=== PATIENT | female | born 1960 | race Caucasian/White ===

== ENCOUNTER 2017-04-27 12:17 | Emergency (ER) | payer BC ==
[2017-04-27 13:01] VITALS: BP 101/60
--- NOTE | 2017-04-27 13:13 | UC ---
Hand/Wrist HPI - HPI Summary HPI Summary: Stung on R hand 2 days ago by flying insect. Since then has been having increasing redness, soreness, and itching on R hand and wrist, not into arm. Denies hives, vomiting, trouble breathing. - History Of Current Complaint Hx Obtained From: Patient ?: No Onset/Duration: Sudden Onset Severity Initially: Mild Severity Currently: Mild Character Of Pain: Dull, Aching Associated Signs And Symptoms: Positive: Swelling, Redness Related History: Dominant Hand Right <Lorena Da Silva - Last Filed: 04/27/17 13:08> <Sylvie Wilkes - Last Filed: 04/27/17 13:38> - History Of Current Complaint Stated Complaint: HAND SWOLLEN BEE STING Time Seen by Provider: 04/27/17 13:00 - Allergies/Home Medications Allergies/Adverse Reactions: Allergies Allergy/AdvReac Type Severity Reaction Status Date / Time Erythromycin Allergy Abdominal Verified 04/27/17 13:02 Pain PMH/Surg Hx/FS Hx/Imm Hx Previously Healthy: Yes - Surgical History Surgical History: None Surgery Procedure, Year, and Place: NONE TO HEAD - Family History Known Family History: Positive: Hypertension - Social History Alcohol Use: None Substance Use Type: None Smoking Status (MU): Never Smoked Tobacco <Lorena Da Silva - Last Filed: 04/27/17 13:08> Review of Systems Constitutional: Negative Skin: Rash - redness R hand Eyes: Negative ENT: Negative Respiratory: Negative Cardiovascular: Negative Gastrointestinal: Negative Genitourinary: Negative Motor: Negative Neurovascular: Negative Musculoskeletal: Negative Neurological: Negative Psychological: Negative All Other Systems Reviewed And Are Negative: Yes <Lorena Da Silva - Last Filed: 04/27/17 13:08> Physical Exam Triage Information Reviewed: Yes Appearance: Well-Appearing Vital Signs: Initial Vital Signs Pulse 43 04/27/17 12:55 Resp 16 04/27/17 12:55 BP 101/60 04/27/17 12:55 Pulse Ox 100 04/27/17 12:55 Vital Signs Reviewed: Yes Eye Exam: Normal Eyes: Positive: Conjunctiva Clear ENT Exam: Normal ENT: Positive: Normal ENT inspection, Hearing grossly normal, Pharynx normal, TMs normal Dental Exam: Normal Neck exam: Normal Neck: Positive: Supple, Nontender, No Lymphadenopathy Respiratory Exam: Normal Respiratory: Positive: Chest non-tender, Lungs clear, Normal breath sounds, No respiratory distress, No accessory muscle use Cardiovascular Exam: Normal Cardiovascular: Positive: RRR, No Murmur Musculoskeletal Exam: Normal Neurological Exam: Normal Psychological Exam: Normal Skin Exam: Other - R hand redness, warm <Lorena Da Silva - Last Filed: 04/27/17 13:08> Vital Signs: Initial Vital Signs Pulse 43 04/27/17 12:55 Resp 16 04/27/17 12:55 BP 101/60 04/27/17 12:55 Pulse Ox 100 04/27/17 12:55 <Sylvie Wilkes - Last Filed: 04/27/17 13:38> Hand/Wrist Course/Dx - Differential Dx/Diagnosis Provider Diagnoses: R hand insect sting, local reaction <Lorena Da Silva - Last Filed: 04/27/17 13:08> Discharge <Lorena Da Silva - Last Filed: 04/27/17 13:08> <Sylvie Wilkes - Last Filed: 04/27/17 13:38> - Discharge Plan Condition: Stable Disposition: HOME Prescriptions: predniSONE TAB* [Deltasone TAB*] 40 mg PO DAILY #4 tab Patient Education Materials: Insect Bite or Sting (ED) Referrals: Margi Mckee MD [Primary Care Provider] - Additional Instructions: If you have severe redness, swelling, pain, or drainage, please return here. Attestation Statement User Type: Provider - I was available for consult. This patient was seen by the DAVIN. The patient was not presented to, seen by, or examined by me. -Sara <Sylvie Wilkes - Last Filed: 04/27/17 13:38>
== END 2017-04-27 13:11 | disposition home or self-care (01) ==
LOC: UCEAST 12:17
DX: T63.481A Toxic effect of venom of other arthropod, accidental (unintentional), initial encounter (principal); L53.9 Erythematous condition, unspecified
CPT/HCPCS: 99212; G0463

== ENCOUNTER 2019-03-03 09:41 | Emergency (ER) | payer BC, OTHER ==
[2019-03-03] MEDS ORDERED: Acetaminophen TAB* 325 MG PO ONE (10:05)
--- OUTSIDE RECORDS SUMMARY | 2019-03-03 10:23 | XMS REPORT | Continuity of Care Document ---
:1960 External Reference #:[id number] Author Name Antonioyo Lyudmila Care Team Providers Name Role Phone Margi Mckee MD Primary Care Physician Unavailable Payers Date Identification Numbers Payment Provider Subscriber Effective: 2017 Policy Number: [id number] [employer] Darshana Ha PayID: [id number] [address] [address] [place] [address] Advance Directives Description No Information Available Problems Active Problems Provider Date Allergic asthma without status asthmaticus aMrgi Mckee M.D. Onset: 09/2011 Hyperlipidemia Margi Mckee M.D. Onset: 08/05/2011 Palpitations Jacklyn Moy M.D. Onset: 08/05/2011 Family History Date Family Member(s) Observation Comments General Heart Disease General Diabetes General Leukemia General Stroke : (age Father due to Leukemia also colon cancer 73 Years) Father Colon Cancer : (age Mother due to Stroke DM, HTN ID at age 62, 83 Years) at 83. 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 ETOH Use Has consumed alcohol in alcohol dependence, the past quit 1989 Tobacco Use Start: Unknown End: Patient is a former 1 ppd quit in her Unknown smoker 40's. Smoking Status Reviewed: 02/21/19 Patient is a former 1 ppd quit in her smoker 40's. Exercise Exercises regularly Daily. 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 [employer] [employer] Allergies, Adverse Reactions, Alerts Active Allergies Reaction Severity Comments Date Tetracycline Nausea and Vomiting Moderate 08/08/2010 Erythromycin Nausea and Vomiting Moderate 08/11/2010 Medications Active Medications SIG Qnty Indications Ordering Date Provider Gushaunafenesin-Codeine 5-10 milliliters 240ml [facility] 08/30/2018 every 6 hours as Ambar Mckee 100-10mg/5ML needed for cough Solution Mupirocin Calcium apply twice a day 15gm L01.00 [facility] 12/09/2017 Ambar Mckee 2% Cream Ibuprofen take one tablet by 60tabs [facility] 03/30/2017 600mg mouth three times a Ambar Mckee Tablets day as needed Proair HFA 2 puffs 4 times 8.500gm [facility] 01/07/2017 daily as needed Ambar Mckee 108(90Base) mcg/Act Aerosol History Medications Amoxicillin/Clavulanate take one tablet 20tabs J01.90 Yoel Greenfield 2018 - Potassium q12 hours for 10 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 02/13/2019 875-125mg Tablets days Fluconazole one by mouth february 2tabs J01.80 Yoel Greenfield 09/06/2018 - 150mg Tablets repeat in 3 days 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 02/10/2019 as needed Augmentin one by mouth 20tabs R05 [facility] 08/30/2018 - 875-125mg Tablets every 12 hours Ambar Mckee 09/06/2018 for 10 days Azithromycin 2 PO qd x 3 days 6tabs Margi 08/30/2018 - 250mg Tablets Ambar Mckee 09/06/2018 Ciprofloxacin HCL 1 by mouth twice 6tabs N39.0 Margi 04/16/2017 - 250mg Tablets a day for 3 days Ambar Mckee 12/08/2017 Amoxicillin/Clavulanate 1 tablet twice 20tabs [facility] 01/30/2017 - Potassium daily for 10 days Ambar Mckee 02/10/2017 875-125mg Tablets Benzonatate take 1 capsule by 20caps [facility] 01/29/2017 - 200mg Capsules mouth three times Ambar Mckee 02/03/2017 a day if needed for cough Cleocin 1 applicator 40gm N77.1 [facility] 05/14/2016 - 2% Cream intravaginally at Ambar Mckee 01/10/2017 bedtime for 7 nights Fluconazole one by mouth february 2tabs Lillian 04/20/2016 - 150mg Tablets repeat in 3 days Belinda, N.P. 05/14/2016 as needed Augmentin 1 tablet by mouth 20tabs J06.9 Yoel Greenfield, 01/16/2016 - 875-125mg Tablets q12 hours for 10 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 01/23/2016 days Diflucan take 1 tablet. if 2tabs J06.9 Yoel Greenfield, 01/16/2016 - 150mg Tablets symptoms persist 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 01/24/2016 may take second tablet in 3 days. 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 may repeat Ambar Mckee 07/17/2012 3 days later if needed Augmentin one by mouth 20tabs 461.9 [facility] 04/20/2011 - 875-125mg Tablets every 12 hours Ambar Mckee 04/30/2011 for ten days Fluticasone Propionate 1 spray each 1Month 461.9 [facility] 04/20/2011 - 50mcg/Act nostril daily as Ambar Mckee 05/04/2011 Suspension needed Proair HFA 2 puffs 4 times 8.500gm 493.00 Margi 12/12/2010 - 108(90Base) mcg/ac daily as needed Ambar Mckee 08/05/2011 Aerosol Augmentin 1 tab by mouth 20tabs Sandra Marsha, 10/02/2010 - 875-125mg Tablets twice a day [facility], [facility] 10/30/2010 Nasonex 1 spray each 17gm Sandra Larson, 09/30/2010 - 50mcg/Act Suspension nostril daily M.[facility]uc[facility], [facility] 09/30/2010 Ibuprofen 1 by mouth three 60tabs Margi - 600mg Tablets times a day as Ambar Mckee 03/30/2017 needed Medications Administered in Office Medication SIG Qnty Indications Ordering Provider Date PPD Margi Mckee M.D. 04/23/2016 Injection Immunizations CPT Code Status Date Vaccine Reaction Lot # [id number] Given 07/20/2018 Influenza Virus Vaccine, No immediate [id number] Quadrivalent, Split, reaction...[id number] Preservative Free 04532 Given 08/03/2017 Influenza Virus Vaccine, [id number] Quadrivalent, Split, Preservative Free 02704 Given 08/07/2016 Influ Virus Vaccine, [id number] Quadrivalent, Split Virus, [place] [address] Given 08/02/2015 Influenza Virus Vaccine, [id number] Quadrivalent, Split, Preservative Free 10742 Given 08/01/2014 Influenza Virus Vaccine, [id number] Quadrivalent, Split, Preservative Free 60106 Given 08/11/2013 Flu Vaccine Split Virus [id number] Preservative Free For Indiv 3Yr Older Q2038 Given 07/18/2012 Fluzone Vaccine [id number] 03986 Given 08/05/2011 Influenza Virus 3Yrs & Over [id number] 22178 Given 10/31/2010 Tdap - Tetanus/Diptheria/Acellular Pertussis 51792 Given 08/11/2010 Influenza Virus 3Yrs & Over 26046 Given 11/04/2009 Influenza Virus Vaccine, Pandemic Formulation 85384 Given 11/04/2009 Administration Swine Flu Shot 10588 Given 08/05/2009 Influenza Virus 3Yrs & Over 56241 Given 08/06/2008 Influenza Virus 3Yrs & Over 83425 Given 08/12/2007 Influenza Virus 3Yrs & Over 62635 Given 08/12/2007 Influenza Virus 3Yrs & Over 66623 Given 09/03/2006 Influenza Virus 3Yrs & Over 52045 Given 09/03/2006 Influenza Virus 3Yrs & Over Vital Signs Date Vital Result Comment 02/21/2019 2:13pm Height 64.75 inches 5'4.75" Heart Rate 58 /min BP Systolic Sitting 110 mmHg BP Diastolic Sitting 71 mmHg Body Temperature 98.4 F O2 % BldC Oximetry 98 % 02/03/2019 11:40am Height 64.75 inches 5'4.75" Weight 150.00 lb Heart Rate 65 /min BP Systolic Sitting 101 mmHg BP Diastolic Sitting 62 mmHg Body Temperature 98.0 F O2 % BldC Oximetry 98 % BMI (Body Mass Index) 25.2 kg/m2 12/08/2018 8:53am Height 64.75 inches 5'4.75" Weight 142.00 lb Heart Rate 69 /min BP Systolic 97 mmHg BP Diastolic 62 mmHg O2 % BldC Oximetry 100 % BMI (Body Mass Index) 23.8 kg/m2 08/30/2018 3:34pm Height 64.75 inches 5'4.75" Weight 148.00 lb Heart Rate 82 /min BP Systolic Standing 117 mmHg BP Diastolic Standing 73 mmHg Body Temperature 99.8 F O2 % BldC Oximetry 97 % BMI (Body Mass Index) 24.8 kg/m2 05/17/2018 10:07am Height 64.75 inches 5'4.75" Weight 144.00 lb Heart Rate 75 /min BP Systolic 123 mmHg BP Diastolic 74 mmHg O2 % BldC Oximetry 97 % BMI (Body Mass Index) 24.1 kg/m2 04/21/2018 8:10am Height 64.75 inches 5'4.75" Weight 144.00 lb Heart Rate 60 /min BP Systolic 110 mmHg BP Diastolic 70 mmHg O2 % BldC Oximetry 98 % BMI (Body Mass Index) 24.1 kg/m2 04/04/2018 10:40am Height 64.75 inches 5'4.75" Weight 145.00 lb Heart Rate 60 /min BP Systolic Sitting 98 mmHg BP Diastolic Sitting 70 mmHg O2 % BldC Oximetry 100 % BMI (Body Mass Index) 24.3 kg/m2 12/09/2017 11:35am Weight 145.00 lb Heart Rate 69 /min BP Systolic Sitting 106 mmHg BP Diastolic Sitting 74 mmHg Body Temperature 97.2 F O2 % BldC Oximetry 98 % 04/16/2017 3:52pm Weight 145.75 lb Heart Rate 59 /min BP Systolic 114 mmHg BP Diastolic 68 mmHg Body Temperature 96.5 F O2 % BldC Oximetry 95 % 03/30/2017 9:13am Height 64.25 inches 5'4.25" Weight 143.00 lb Heart Rate 73 /min BP Systolic 110 mmHg BP Diastolic 66 mmHg Body Temperature 97.2 F O2 % BldC Oximetry 99 % BMI (Body Mass Index) 24.4 kg/m2 02/03/2017 12:59pm Heart Rate 74 /min BP Systolic Sitting 106 mmHg BP Diastolic Sitting 68 mmHg Body Temperature 97.8 F O2 % BldC Oximetry 97 % 01/29/2017 10:05am Weight 146.25 lb Heart Rate 64 /min BP Systolic Sitting 112 mmHg BP Diastolic Sitting 58 mmHg Body Temperature 98.0 F O2 % BldC Oximetry 98 % 01/11/2017 8:16am Height 64.25 inches 5'4.25" Weight 149.00 lb Heart Rate 60 /min BP Systolic Sitting 108 mmHg BP Diastolic Sitting 62 mmHg Respiratory Rate 16 /min Pain Level 2 BMI (Body Mass Index) 25.4 kg/m2 12/10/2016 9:01am Weight 147.00 lb with shoes Heart Rate 73 /min BP Systolic 106 mmHg BP Diastolic 70 mmHg Body Temperature 96.4 F O2 % BldC Oximetry 99 % 05/14/2016 1:25pm Weight 143.00 lb Heart Rate 60 /min BP Systolic Sitting 124 mmHg BP Diastolic Sitting 80 mmHg Respiratory Rate 15 /min Body Temperature 98.1 F O2 % BldC Oximetry 98 % 04/15/2016 1:22pm Heart Rate 76 /min BP Systolic Sitting 118 mmHg BP Diastolic Sitting 64 mmHg Respiratory Rate 15 /min Body Temperature 98.0 F O2 % BldC Oximetry 98 % 04/10/2016 11:48am Height 64.25 inches 5'4.25" Weight 144.00 lb Heart Rate 78 /min BP Systolic Sitting 114 mmHg BP Diastolic Sitting 62 mmHg Respiratory Rate 15 /min Body Temperature 97.3 F O2 % BldC Oximetry 99 % BMI (Body Mass Index) 24.5 kg/m2 03/26/2016 10:43am Height 64.25 inches 5'4.25" Weight 143.00 lb Heart Rate 63 /min BP Systolic Sitting 102 mmHg BP Diastolic Sitting 70 mmHg Body Temperature 96.4 F O2 % BldC Oximetry 98 % BMI (Body Mass Index) 24.4 kg/m2 01/16/2016 10:52am Height 64.75 inches 5'4.75" Weight 140.00 lb Heart Rate 62 /min BP Systolic Sitting 112 mmHg BP Diastolic Sitting 72 mmHg Respiratory Rate 16 /min Body Temperature 97.0 F O2 % BldC Oximetry 99 % BMI (Body Mass Index) 23.5 kg/m2 01/13/2016 1:22pm Height 64.75 inches 5'4.75" Weight 141.00 lb Heart Rate 84 /min BP Systolic Sitting 118 mmHg BP Diastolic Sitting 68 mmHg Body Temperature 100.1 F O2 % BldC Oximetry 98 % BMI (Body Mass Index) 23.6 kg/m2 03/21/2015 10:33am Height 64.75 inches 5'4.75" Weight 141.00 lb Heart Rate 62 /min BP Systolic Sitting 95 mmHg BP Diastolic Sitting 60 mmHg BMI (Body Mass Index) 23.6 kg/m2 01/09/2015 2:05pm Weight 145.00 lb Heart Rate 65 /min BP Systolic Sitting 110 mmHg BP Diastolic Sitting 66 mmHg Body Temperature 96.8 F 12/06/2014 2:52pm Weight 144.00 lb Heart Rate 66 /min BP Systolic Sitting 110 mmHg BP Diastolic Sitting 65 mmHg Body Temperature 98.2 F O2 % BldC Oximetry 99 % 03/15/2014 10:23am Height 65 inches 5'5" Weight 144.00 lb Heart Rate 55 /min BP Systolic Sitting 106 mmHg BP Diastolic Sitting 68 mmHg Body Temperature 97.6 F BMI (Body Mass Index) 24.0 kg/m2 11/01/2013 9:33am Weight 146.00 lb Heart Rate 76 /min BP Systolic Sitting 110 mmHg BP Diastolic Sitting 76 mmHg 07/18/2012 10:32am Height 64 inches 5'4" Weight 145.00 lb Heart Rate 70 /min BP Systolic Sitting 122 mmHg BP Diastolic Sitting 76 mmHg BMI (Body Mass Index) 24.9 kg/m2 05/10/2012 11:42am Height 64 inches 5'4" Weight 147.00 lb Heart Rate 74 /min BP Systolic Sitting 112 mmHg BP Diastolic Sitting 60 mmHg Body Temperature 98.8 F BMI (Body Mass Index) 25.2 kg/m2 12/14/2011 11:03am Height 64 inches 5'4" Heart Rate 66 /min BP Systolic Sitting 118 mmHg BP Diastolic Sitting 64 mmHg 11/26/2011 11:40am Height 64 inches 5'4" Weight 150.00 lb Heart Rate 60 /min BP Systolic Sitting 104 mmHg BP Diastolic Sitting 58 mmHg Body Temperature 97.9 F BMI (Body Mass Index) 25.7 kg/m2 08/28/2011 1:04pm Height 64 inches 5'4" Weight 156.00 lb Heart Rate 74 /min BP Systolic Sitting 126 mmHg BP Diastolic Sitting 78 mmHg BMI (Body Mass Index) 26.8 kg/m2 08/05/2011 9:33am Height 64 inches 5'4" Heart Rate 60 /min BP Systolic Sitting 98 mmHg l BP Diastolic Sitting 62 mmHg l O2 % BldC Oximetry 97 % 04/20/2011 11:19am Height 64 inches 5'4" Weight 149.00 lb Heart Rate 74 /min BP Systolic Sitting 104 mmHg BP Diastolic Sitting 74 mmHg Body Temperature 97.9 F BMI (Body Mass Index) 25.6 kg/m2 12/12/2010 1:21pm Heart Rate 64 /min BP Systolic 102 mmHg BP Diastolic 58 mmHg Body Temperature 98.8 F O2 % BldC Oximetry 98 % 11/05/2010 2:32pm Heart Rate 60 /min BP Systolic 102 mmHg BP Diastolic 64 mmHg Body Temperature 98.5 F 10/31/2010 9:05am Height 65 inches 5'5" Weight 158.75 lb Heart Rate 78 /min BP Systolic 90 mmHg BP Diastolic 60 mmHg BMI (Body Mass Index) 26.4 kg/m2 09/30/2010 2:44pm Heart Rate 84 /min BP Systolic Sitting 108 mmHg BP Diastolic Sitting 52 mmHg Body Temperature 97.1 F 08/11/2010 3:08pm Weight 158.38 lb Heart Rate 60 /min BP Systolic 100 mmHg BP Diastolic 58 mmHg Results Test Date Facility Test Result H/L Range Note Laboratory test 12/08/2018 [facility] Cytology SEE RESULT 1 , [address] [place] [address] [phone] Laboratory test 11/10/2018 [facility] Surgical Interface SEE RESULT [address] [place] [address] [phone] Laboratory test 05/17/2018 [facility] Surgical Pathology SEE RESULT [address] [place] [place], [place] [id number] [phone] Laboratory test 04/21/2018 [facility] Cytology SEE RESULT 5 , [address] [place], [place] [id number] [phone] Lipid Profile 03/31/2018 [facility] Triglycerides 79 mg/dL 7 (Trig/Chol/HDL) [address] [place] [address] [phone] Cholesterol 236 mg/dL 8 HDL Cholesterol 89.6 mg/dL 9 LDL Cholesterol 131 mg/dL 10 Laboratory test 03/31/2018 [facility] Glucose 73 mg/dL N 70- [address] [place] [address] [phone] Urine Culture And 04/16/2017 [facility] Urine Culture SEE RESULT [address] [place] [place], [place] [id number] [phone] GC/Chlamydia 04/16/2017 [facility] Chlamydia Negative N Negative Amplified Rna [address] [place] [address] Rna [phone] Neisseria gonorrhoeae (GC) Rna Negative N Negative Ua Routine 04/16/2017 [facility] Ua Specific [place] 1.005 Ua PH 6 Ua Color yellow Ua Appera cl Ua WBC trace Ua Protein neg Ua Glucose norm Ua Ketones neg Ua Bilirubin neg Ua Urobilinogen norm Ua Nitrite neg Ua Occult Blood neg Laboratory test 03/30/2017 [facility] Gardnerella/Yeast: SEE RESULT [address] Vaginal Dna BELOW [place], [place] [id number] [phone] Basic Metabolic 03/26/2017 [facility] Sodium 138 mmol/L N 133 - Panel [address] [place] [address] [phone] Potassium 4.1 mmol/L N 3.5-5.0 Chloride 102 mmol/L N 101-111 Co2 Carbon Dioxide 32 mmol/L N 22-32 Anion Gap 4 mmol/L N 2-11 Glucose 77 mg/dL N 70-100 Blood Urea Nitrogen 10 mg/dL N 6-24 Creatinine 0.77 mg/dL N 0.51-0.95 BUN/Creatinine Ratio 13.0 N 8-20 Calcium 9.5 mg/dL N 8.6-10.3 Egfr Non- 77.5 N >60 Egfr 99.7 N >60 13 Lipid Profile 03/26/2017 [facility] Triglycerides 88 mg/dL N 14 (Trig/Chol/HDL) [address] [place] [address] [phone] Cholesterol 225 mg/dL N 15 HDL Cholesterol 78.0 mg/dL N 16 LDL Cholesterol 129 mg/dL N 17 Ua Routine 05/14/2016 [facility] Ua Specific [place] 1.010 Ua PH 6 Ua Color yellow Ua Appera clear Ua WBC neg Ua Protein neg Ua Glucose neg Ua Ketones neg Ua Bilirubin neg Ua Urobilinogen neg Ua Nitrite neg Ua Occult Blood non hemo trace Laboratory test 05/14/2016 [facility] Gardnerella/Yeast: SEE RESULT [address] [place] [address] [phone] Urine Culture And 05/14/2016 [facility] Urine Culture SEE RESULT [address] [place] [address] [phone] Laboratory test 04/15/2016 [facility] Gardnerella/Yeast: SEE RESULT [address] [place] [address] [phone] Urine Culture And 04/15/2016 [facility] Urine Culture SEE RESULT [address] [place] [address] [phone] Ua Routine 04/15/2016 [facility] Ua Specific [place] 1.010 Ua PH 5 Ua Color yellow Ua Appera clear Ua WBC neg Ua Protein neg Ua Glucose neg Ua Ketones neg Ua Bilirubin neg Ua Urobilinogen neg Ua Nitrite neg Ua Occult Blood neg Lipid Profile 03/19/2016 [facility] Triglycerides 79 mg/dL N 22 (Trig/Chol/HDL) [address] [place] [address] [phone] Cholesterol 234 mg/dL N 23 HDL Cholesterol 91.9 mg/dL N 24 LDL Cholesterol 126 mg/dL N 25 Laboratory test 03/19/2016 [facility] Glucose 73 mg/dL N 70- [address] [place] [address] [phone] Laboratory test 01/13/2016 [facility] Rapid Group A neg finding Strep Laboratory test 03/29/2015 [facility] Cytology SEE RESULT [address] Non-[place] [address] [phone] Urinalysis 03/29/2015 [facility] Urine Color Straw N Profile [address] [place] [address] [phone] Urine Appearance Clear N Urine Specific [place] 1.006 Low 1.010-1.030 Urine pH 6.0 N 5-9 Urine Urobilinogen Negative N Negative Urine Ketones Negative N Negative Urine Protein Negative N Negative Urine Leukocytes Negative N Negative Urine Blood Negative N Negative * * Abnormal Negative 28 Urine Nitrite Negative N Negative Urine Bilirubin Negative N Negative Urine Glucose Negative N Negative Urinalysis Profile 03/21/2015 [facility] Urine Color Straw N [address] [place] [address] [phone] Urine Appearance Clear N Urine Specific [place] 1.006 Low 1.010-1.030 Urine pH 8.0 N 5-9 Urine Urobilinogen Negative N Negative Urine Ketones Negative N Negative Urine Protein Negative N Negative Urine Leukocytes Trace Abnormal Negative Urine Blood Negative N Negative Urine Nitrite Negative N Negative Urine Bilirubin Negative N Negative Urine Glucose Negative N Negative Urine White Blood Cell Trace(0-5/hpf) N Absent Urine Red Blood Cell Trace(0-2/hpf) N Absent Urine Bacteria Absent N Absent Urine Squamous Epithelial Cell Present Abnormal Absent Urine Transitional Epithelial Present Abnormal Absent Laboratory test 03/21/2015 [facility] Urine Culture And SEE RESULT [address] [place] [address] [phone] Lipid Profile 03/13/2015 [facility] Triglycerides 94 mg/dL N 30 (Trig/Chol/HDL) [address] [place] [address] [phone] Cholesterol 193 mg/dL N 31 HDL Cholesterol 75.9 mg/dL N 32 LDL Cholesterol 98 mg/dL N 33 Laboratory test 03/13/2015 [facility] Glucose 76 mg/dL N 70- [address] [place] [address] [phone] Lipid Profile 03/07/2014 [facility] Triglycerides 78 mg/dL N 35, 36 (Trig/Chol/HDL) [address] [place] [address] [phone] Cholesterol 195 mg/dL N 37 HDL Cholesterol 77.6 mg/dL N 38 LDL Cholesterol 102 mg/dL N 39 Comp Metabolic Panel 11/01/2013 [facility] Sodium 135 mmol/L 133-145 [address] [place] [address] [phone] Potassium 4.3 mmol/L 3.5-5.0 Chloride 101 mmol/L 101-111 Co2 Carbon Dioxide 30.0 mmol/L 22-32 Anion Gap 4.0 mmol/L 2-11 Glucose 68 mg/dL Low 70-100 Blood Urea Nitrogen 7 mg/dL 6-24 Creatinine 0.70 mg/dL 0.50-1.40 BUN/Creatinine Ratio 10.0 8-20 Calcium 9.0 mg/dL 8.1-9.9 Total Protein 6.4 g/dL 6.2-8.1 Albumin 4.2 g/dL 3.6-5.4 Globulin 2.2 g/dL 2-4 Albumin/Globulin Ratio 1.9 1-3 Total Bilirubin 0.4 mg/dL 0.4-1.5 Alkaline Phosphatase 50 U/L 30-110 Alt 17 U/L 14-54 Ast 21 U/L 12-42 Egfr Non- 87.9 >60 Egfr 113.0 >60 40 CBC With 11/01/2013 [facility] White Blood 8.3 10^3/uL 4.8- 10.[address] [place] [address] [phone] Red Blood Count 4.03 10^6/uL 4.0-5.4 Hemoglobin 12.6 g/dL 12.0-16.0 Hematocrit 37 % 35-47 Mean Corpuscular Volume 93 fL 80-97 Mean Corpuscular Hemoglobin 31 pg 27-31 Mean Corpuscular HGB Conc 34 g/dL 31-36 Red Cell Distribution Width 13 % 10.5-15 Platelet Count 200 10^3/uL 150-450 Platelet Morphology Large Mean Platelet Volume 12 um3 High 7.4-10.4 Abs Neutrophils 5.7 10^3/uL 1.5-7.7 Abs Lymphocytes 1.9 10^3/uL 1.0-4.8 Abs Monocytes 0.6 10^3/uL 0-0.8 Abs Eosinophils 0.1 10^3/uL 0-0.6 Abs Basophils 0 10^3/uL 0-0.2 Abs Nucleated RBC 0 10^3/uL Neutrophil % 67 % 38-83 Lymphocytes % 18 % Low 25-47 Monocytes % 13 % 0-13 Reactive Lymph % 2 % 0-6 RBC Morphology Normal Normal Laboratory 07/18/2012 [facility] Cytology 41 test finding [address] <SEE NOTE> [place], [place] [id number] [phone] Laboratory 11/26/2011 [facility] Throat [address] Culture Full <SEE NOTE> [place], [place] [id number] [phone] Thyroid Panel 08/06/2011 [facility] Free 0.67 ng/dL 0.61 DRIVE Thyroxine -1.2 [place] [address] 4 [phone] Thyroxine 5.1 g/dL 5-12 Laboratory test 08/06/2011 [facility] TSH 1.47 0.34-5.[address] MIU/ML [place], [place] [address] [phone] Laboratory test 10/31/2010 [facility] C Reactive < 0.2 mg/L < 7.[address] [place] [address] Sensit [phone] Lipid Profile 10/31/2010 [facility] Triglyceride 68 mg/dL 40- 200 (Trig/Chol/HDL) [address] [place], [place] [address] [phone] Cholesterol 192 mg/dL Less Than 200 44 High Density Lipoprotein 77 mg/dL High 40-60 45 Cholesterol/HDL Ratio 2.49 AVERAGE 1-4.44 Low Density Lipoprotein 101 mg/dL High Less Than 100 46 Comp Metabolic Panel 10/31/2010 [facility] Sodium 136 mmol/L 135-145 [address] [place] [address] [phone] Potassium 4.4 mmol/L 3.5-5.0 Chloride 102 mmol/L 101-111 Co2 (Carbon Dioxide) 29.0 mmol/L 22-32 Anion Gap 5.0 mmol/L 2-11 47 Glucose 78 mg/dL 70-100 BUN 6 mg/dL 6-24 Creatinine 0.80 mg/dL 0.50-1.40 One Over Creatinine 1.20 BUN/Creatinine Ratio 7.5 Low 8-20 Calcium 9.1 mg/dL 8.1-9.9 Total Protein 6.4 GM/DL 6.2-8.1 Albumin 4.0 GM/DL 3.6-5.4 Globulin 2.4 GM/DL 2-4 Albumin/Globulin Ratio 1.7 1-3 Bilirubin Total 0.7 mg/dL 0.4-1.5 48 Alkaline Phosphatase 48 U/L 30-110 Alt (SGPT) 16 U/L 14-54 Ast (Sgot) 23 U/L 12-42 eGFR Non- 81.0 > 60 eGFR 98.0 > 60 49 Laboratory test 06/10/2010 [facility] TSH 1.57 MIU/ML 0.34- 5.60 finding [address] [place] [address] [phone] Lipid Profile 06/10/2010 [facility] Triglyceride 76 mg/dL 40- 200 (Trig/Chol/HDL) [address] [place] [address] [phone] Cholesterol 215 mg/dL High Less Than 200 50 High Density Lipoprotein 61 mg/dL High 40-60 51 Cholesterol/HDL Ratio 3.52 AVERAGE 1-4.44 Low Density Lipoprotein 139 mg/dL High Less Than 100 52 Comp Metabolic Panel 06/10/2010 [facility] Sodium 139 mmol/L 135-145 [address] [place] [address] [phone] Potassium 4.1 mmol/L 3.5-5.0 Chloride 105 mmol/L 101-111 Co2 (Carbon Dioxide) 30.0 mmol/L 22-32 Anion Gap 4.0 mmol/L 2-11 53 Glucose 78 mg/dL 70-100 54 BUN 10 mg/dL 6-24 Creatinine 0.90 mg/dL 0.50-1.40 One Over Creatinine 1.10 BUN/Creatinine Ratio 11.1 8-20 Calcium 9.0 mg/dL 8.1-9.9 55 Total Protein 5.8 GM/DL Low 6.2-8.1 Albumin 4.0 GM/DL 3.6-5.4 Globulin 1.8 GM/DL Low 2-4 Albumin/Globulin Ratio 2.2 1-3 Bilirubin Total 0.7 mg/dL 0.4-1.5 56 Alkaline Phosphatase 50 U/L 30-110 Alt (SGPT) 25 U/L 14-54 Ast (Sgot) 27 U/L 12-42 eGFR Non- 70.7 > 60 eGFR 85.6 > 60 57 Manual Differential 06/10/2010 [facility] Polysegmented 61 % 38-[address] [place] [address] [phone] Band Neutrophil 2 % 0-8 Lymphocyte 25 % 25-47 Monocyte 8 % 0-13 Eosinophil 2 % 0-6 Basophil 1 % 0-2 Atypical Lymph 1 % 0-6 Absolute Neutrophil Count 3.2 Anisocytosis SLIGHT Ovalocytes FEW CBC With 06/10/2010 [facility] White Blood 5.1 CUMM 4.8-10.8 Electronic Diff [address] [place] [address] [phone] Red Cell Count 4.00 CUMM Low 4.2-5.4 Hemoglobin 12.7 g/dL 12.0-16.0 Hematocrit 37 % 35-47 Mean Corpuscular Volume 92 um3 79-97 Mean Corpuscular Hemoglob 32 pg High 27-31 Mean Corpuscular HGB Cone 34 g/dL 32-36 Redcell Distribution WDTH 13 % 10.5-15 Platelet Count 196 CUMM 150-450 Mean Platelet Volume 8.7 um3 7.4-10.4 58 1 [id number] 2 SEE RESULT BELOW Name: DARSHANA HA : [address]: Riley Parry MD Acct: [id number] Unit: [id number] AGE: 58 Location: [facility] Re12/08/18 SEX: F Status: REG REF SPEC: [id number] MARY: 12/08/[address]: Riley Parry MD REQ: [id number] RECD: 12/08/18 STATUS: SOUT _ ORDERED: TP IMAGE ANALYS, FOOD DEHYDRATOR OPERATOR PHYS INTERP, HPV/Thin Prep COMMENTS: [id number] EPITHELIAL CELL ABNORMALITIES Atypical squamous cells of undetermined significance Date Time Test Result Flag (u) Normal Range 12/08/18 0858 @ HPV RNA POSITIVE An Negative @ @ The high-risk HPV types detected by the assay include: 16, @ 18, 31, 33, 35, 39, 45, 51, 52, 56, 58, 59, 66, and 68. A. Ectocervical/Endocervical Specimen Adequacy: Satisfactory of evaluation Transformation zone component identified Patient Information: HPV: High risk HPV RNA testing regardless of pap results. Actual Specimen Date: 12/08/18 Last Menstrual Date: 10/25/13 ?: N Post Menopausal?: Y Hysterectomy?: N Signed by and Reported on: Rachele Bey MD 12/13/18 5685 This Pap test was evaluated with the assistance of the TimePadPrep Test Imaging System. Due to cytologic findings at the learning operations specialist microscope, comprehensive manual rescreening by a Figurine Maker may be required. The Pap Smear is a screening test designed to aid in the detection of premalignant and malignant conditions of the uterine cervix. It is not a diagnostic procedure and should not be used as the sole means of detecting cervical cancer. Both false- positive and false- negative reports do occur. Depending on your risk status, a Pap smear should be obtained and evaluated every 1-3 years. END OF REPORT DEPARTMENT OF PATHOLOGY, [address] [place] [address] Lawson Fischer M.D. Director [facility] # [id number] 3 SEE RESULT BELOW Name: DARSHANA HA : [address]: Jayna Orta MD Acct: [id number] Unit: [id number] AGE: 57 Location: [facility] Re11/10/18 SEX: F Status: DEP REF SPEC: [id number] MARY: 11/10/18-[address] [facility] [address]: Jayna Restrepo MD REQ: [id number] RECD: 11/10/18161 STATUS: JEROMY BABCOCK DR: Margi Mckee MD _ ORDERED: LEVEL 4 FINAL DIAGNOSIS Colon, sigmoid, biopsy: -- Tubular adenoma. -- No high grade dysplasia or malignancy. CLINICAL HISTORY History of polyps POST-OPERATIVE DIAGNOSIS Colonoscopy: to terminal ileum; good prep; transverse 4 mm jumbo (2); sigmoid polyp 4 mm jumbo (2); hemorrhoids; very tortuous; looping GROSS DESCRIPTION The specimen is received in formalin labeled, Biopsy Sigmoid Colon Polyp, and consists of two fisher-pink irregular to polypoid soft tissue fragments measuring 0.4 x 0.3 x 0.2 cm and 0.5 x 0.3 x 0.1 cm which are submitted entirely in one cassette. Signed by and Reported on: Rachele Bey MD 11/11/18 1205 END OF REPORT DEPARTMENT OF PATHOLOGY, [address] [place] [address] Lawson Fischer M.D. Director [facility] # [id number] 4 SEE RESULT BELOW Name: DARSHANA HA : [address]: Riley Parry MD Acct: [id number] Unit: [id number] AGE: 57 Location: [facility] Re05/17/18 SEX: F Status: REG REF SPEC: [id number] MARY: 05/17/18-1149 [facility] [address]: Riley Parry MD REQ: [id number] RECD: 05/17/180040 STATUS: SOUT _ ORDERED: LEVEL 4/2, IMMUNO-FIRST/2 COMMENTS: [id number] FINAL DIAGNOSIS 1. Uterus, endocervix, curettage: -- Focal low-grade squamous intraepithelial lesion (condyloma). See comment. 2. Uterus, cervix, 6:00, biopsy: --Partially denuded benign cervical mucosa with atrophic features. See comment. -- No dysplasia or HPV effect identified. Comment: Immunochemical stains for p16 (HPV surrogate marker) are performed with appropriate controls on both parts 1 and 2. Part 1 demonstrates weak focal primarily Beseler staining supporting the diagnosis of condyloma. Part 2 demonstrates no significant p16 staining which in conjunction with the morphology is indicative of benign atrophy. Appropriate clinical follow-up is warranted. CLINICAL HISTORY History of cervical dysplasia greater than 10 years ago, positive high risk HPV PRE-OPERATIVE DIAGNOSIS Atypical squamous cells of undetermined significance, cannot rule out high grade GROSS DESCRIPTION 1. The specimen is received in formalin labeled, ECC, and consists of a 0.3 x 0.2 x 0.1 cm aggregate of fisher-white mucus which is filtered and submitted entirely in one cassette. NOTE: The specimen is scant and may not survive processing. CONTINUED ON NEXT PAGE DEPARTMENT OF PATHOLOGY, [address] [place] [address] Lawson Fischer M.D. Director [facility] # [id number] RUN DATE: 05/20/18 [facility] LAB LIVE PAGE 2 Patient: DARSHANA HA [id number] (Continued) GROSS DESCRIPTION (Continued) GROSS DESCRIPTION (Continued) 2. The specimen is received in formalin labeled, 6:00, and consists of a 0.3 x 0.3 x 0.2 cm fisher-white irregular soft tissue fragment which is inked and submitted entirely in one cassette. Signed by and Reported on: Lawson Fischer MD 1256 END OF REPORT DEPARTMENT OF PATHOLOGY, [address] [place] [address] Lawson Fischer M.D. Director [facility] # [id number] 6 SEE RESULT BELOW Name: DARSHANA FERRO : [address]: Riley Parry MD Acct: [id number] Unit: [id number] AGE: 57 Location: [facility] Re04/21/18 SEX: F Status: REG REF SPEC: [id number] MARY: 04/21/[address]: Riley Parry MD REQ: [id number] RECD: 04/21/18 STATUS: SOUT _ ORDERED: TP IMAGE ANALYS, FOOD DEHYDRATOR OPERATOR PHYS INTERP, HPV/Thin Prep COMMENTS: [id number] EPITHELIAL CELL ABNORMALITIES Atypical squamous cells, cannot exclude HSIL (ASC-H) A. Ectocervical/Endocervical Specimen Adequacy: Satisfactory of evaluation Transformation zone component identified Patient Information: HPV: High risk HPV RNA testing regardless of pap results. Actual Specimen Date: 04/21/18 LMP If Unknown: age 57 Spec Date if unknown: 2015 ?: N Post Menopausal?: Y Hysterectomy?: N Previous Abnormal Pap Smears?:Y If Yes, enter Diagnosis: 2002 dysplasia Date Time Test Result Flag (u) Normal Range 04/21/18 0858 @ HPV RNA POSITIVE An Negative @ @ The high-risk HPV types detected by the assay include: 16, @ 18, 31, 33, 35, 39, 45, 51, 52, 56, 58, 59, 66, and 68. Signed by and Reported on: Rachele Bey MD 04/26/18 4682 This Pap test was evaluated with the assistance of the ThinPrep Test Imaging System. Due to cytologic findings at the learning operations specialist microscope, comprehensive manual rescreening by a Figurine Maker may be required. The Pap Smear is a screening test designed to aid in the detection of premalignant and malignant conditions of the uterine cervix. It is not a diagnostic procedure and should not be used as the sole means of detecting cervical cancer. Both false- positive and false- negative reports do occur. Depending on your risk status, a Pap smear should be obtained and evaluated every 1-3 years. END OF REPORT DEPARTMENT OF PATHOLOGY, [address] [place] [address] Lawson Fischer M.D. Director [facility] # [id number] 7 Desirable: <150 Borderline High: 150-199 High: 200-499 Very High: >500 8 Desirable: <200 Borderline High: 200-239 High: >239 9 Low: <40 Desirable: 40-60 High: >60 10 Desirable: <100 Near Optimal: 100-129 Borderline High: 130-159 High: 160-189 Very High: >189 11 SEE RESULT BELOW Name: DARSHANA FERRO : [address]: Margi Mckee MD Acct: [id number] Unit: [id number] AGE: 56 Location: [facility] Re04/16/17 SEX: F Status: REG REF SPEC: [id number] MARY: 04/16/17-[address] [facility] [address]: Margi Mckee MD REQ: [id number] RECD: 04/16/17 STATUS: COMP _ SOURCE: URINE SPDESC: ORDERED: Urine Culture COMMENTS: [id number] Urine Source: Random Procedure Result Reported Site Urine Culture Final 04/17/17- 1610 ML No Growth (<1,000 CFU/mL) * ML - MAIN LAB ([facility]) . END OF REPORT * ML=Testing performed at Main Lab DEPARTMENT OF PATHOLOGY, [address] [place] [address] Lawson Fischer M.D. Director [facility] # [id number] 12 SEE RESULT BELOW Name: DARIN BRYANTDARSHANA : [address]: Margi Mckee MD Acct: [id number] Unit: [id number] AGE: 56 Location: [facility] Re03/30/17 SEX: F Status: REG REF SPEC: [id number] MARY: 03/30/17-[address] [facility] [address]: Margi Mckee MD REQ: [id number] RECD: 03/30/17 STATUS: COMP _ SOURCE: VAGINAL SPDESC: ORDERED: Cielo,Yeast DNA, Trich DNA COMMENTS: [id number] Procedure Result Reported Site Gardnerella/Yeast: Vaginal DNA Final 03/31/17- 1000 ML Organism 1 Negative Grecia Organism 2 Negative Gardnerella The presence of G. vaginalis, although suggestive, is not diagnostic for bacterial vaginosis. Results should be interpreted in conjuction with other clinical and laboratory data available. Women with vaginal discharge should be evaluated for risk factors of cervicitis and pelvic inflammatory disease, toxic shock syndrome (S.aureus), and if present, evaluated for organisms not included in this assay such as N. gonorrhoeae, C. trachomatis, Mobiluncus, Mycoplasma and/or Prevotella. Mixed infections may occur. The performance of this test on patient specimens collected during or immediately after antimicrobial therapy is unknown. The presence or absence of Grecia species, or G. vaginalis cannot be used as a test for therapeutic success or failure. Trichomonas: Vaginal DNA Probe Final 03/31/17- 1000 ML Organism 1 Negative Trichomonas CONTINUED ON NEXT PAGE * ML=Testing performed at Main Lab DEPARTMENT OF PATHOLOGY, [address] [place] [address] Lawson Fischer M.D. Director [facility] # [id number] Patient: DARSHANA FERRO [id number] (Continued) Specimen: [id number] Collected: 03/30/17-1008 Received: 03/30/17-1834 (Continued) Procedure Result Reported Site Trichomonas: Vaginal DNA Probe Final (continued) 03/31/17- 999 The presence or absence of T. vaginalis cannot be used as a test for therapeutic success or failure. * ML - MAIN LAB ([facility]) . END OF REPORT * ML=Testing performed at Main Lab DEPARTMENT OF PATHOLOGY, [address] [place] [address] Lawson Fischer M.D. Director [facility] # [id number] 13 Because ethnic data is not always readily available, this report includes an eGFR for both -Americans and non- Americans. The National Kidney Disease Education Program (NKDEP) does not endorse the use of the MDRD equation for patients that are not between the ages of 18 and 70, are , have extremes of body size, muscle mass, or nutritional status, or are non- or non-. According to the National Kidney Foundation, irrespective of diagnosis, the stage of the disease is based on the level of kidney function: Stage Description GFR(mL/min/1.73 m(2)) 1 Kidney damage with normal or decreased GFR 90 2 Kidney damage with mild decrease in GFR 60-89 3 Moderate decrease in GFR 30-59 4 Severe decrease in GFR 15-29 5 Kidney failure <15 (or dialysis) 14 Desirable <150 Borderline high 150-199 High 200-499 Very High >500 15 Desirable <200 Borderline high 200-239 High >239 16 Low <40 Desirable: 40-60 High: >60 17 Desirable: <100 mg/dL Near Optimal: 100-129 mg/dL Borderline High: 130-159 mg/dL High: 160-189 mg/dL Very High: >189 mg/dL 18 SEE RESULT BELOW Name: DARSHANA FERRO : [address]: Margi Mckee MD Acct: [id number] Unit: [id number] AGE: 55 Location: [facility] Re05/14/16 SEX: F Status: REG REF SPEC: [id number] MARY: 05/14/16-[address] [facility] [address]: Margi Mckee MD REQ: [id number] RECD: 05/14/16 STATUS: COMP _ SOURCE: VAGINAL SPDESC: ORDERED: Cielo,Yeast DNA, Trich DNA COMMENTS: [id number] Procedure Result Reported Site Gardnerella/Yeast: Vaginal DNA Final 05/15/16- 1048 ML Organism 1 Negative Gardnerella Organism 2 Negative Grecia The presence of G. vaginalis, although suggestive, is not diagnostic for bacterial vaginosis. Results should be interpreted in conjuction with other clinical and laboratory data available. Women with vaginal discharge should be evaluated for risk factors of cervicitis and pelvic inflammatory disease, toxic shock syndrome (S.aureus), and if present, evaluated for organisms not included in this assay such as N. gonorrhoeae, C. trachomatis, Mobiluncus, Mycoplasma and/or Prevotella. Mixed infections may occur. The performance of this test on patient specimens collected during or immediately after antimicrobial therapy is unknown. The presence or absence of Grecia species, or G. vaginalis cannot be used as a test for therapeutic success or failure. Trichomonas: Vaginal DNA Probe Final 05/15/16- 1048 ML Organism 1 Negative Trichomonas CONTINUED ON NEXT PAGE * ML=Testing performed at Main Lab DEPARTMENT OF PATHOLOGY, [address] [place] [address] Lawson Fischer M.D. Director [facility] # [id number] Patient: DARSHANA FERRO [id number] (Continued) Specimen: [id number] Collected: 05/14/16 Received: 05/14/16 (Continued) Procedure Result Reported Site Trichomonas: Vaginal DNA Probe Final (continued) 05/15/16- 1047 The presence or absence of T. vaginalis cannot be used as a test for therapeutic success or failure. * ML - MAIN LAB ([facility]) . END OF REPORT * ML=Testing performed at Main Lab DEPARTMENT OF PATHOLOGY, [address] [place] [id number] Lawson Fischer M.D. Director [facility] # [id number] 19 SEE RESULT BELOW Name: DARIN BRYANTDARSHANA : [address]: Margi Mckee MD Acct: [id number] Unit: [id number] AGE: 55 Location: [facility] Re05/14/16 SEX: F Status: REG REF SPEC: [id number] MARY: 05/14/16-[address]: Margi Mckee MD REQ: [id number] RECD: 05/14/16 STATUS: COMP _ SOURCE: URINE SPDESC: ORDERED: Urine Culture Procedure Result Reported Site Urine Culture Final 05/16/16- 831 ML No growth of clinically significant organisms * ML - MAIN LAB ([facility]) . END OF REPORT * ML=Testing performed at Main Lab DEPARTMENT OF PATHOLOGY, [address] [place] [address] Lawson Fischer M.D. Director [facility] # [id number] 20 SEE RESULT BELOW Name: DARSHANA FERRO : [address]: Lillian Trevino NP Acct: [id number] Unit: [id number] AGE: 55 Location: [facility] Re04/15/16 SEX: F Status: REG REF SPEC: [id number] MARY: 04/15/16-[address] [facility] [address]: Lillian Trevino NP REQ: [id number] RECD: 04/15/16 STATUS: COMP _ SOURCE: VAGINAL SPDESC: ORDERED: Cielo,Yeast DNA, Trich DNA Procedure Result Reported Site Gardnerella/Yeast: Vaginal DNA Final 04/16/16- 1433 ML Organism 1 POSITIVE GARDNERELLA Organism 2 Negative Grecia The presence of G. vaginalis, although suggestive, is not diagnostic for bacterial vaginosis. Results should be interpreted in conjuction with other clinical and laboratory data available. Women with vaginal discharge should be evaluated for risk factors of cervicitis and pelvic inflammatory disease, toxic shock syndrome (S.aureus), and if present, evaluated for organisms not included in this assay such as N. gonorrhoeae, C. trachomatis, Mobiluncus, Mycoplasma and/or Prevotella. Mixed infections may occur. The performance of this test on patient specimens collected during or immediately after antimicrobial therapy is unknown. The presence or absence of Grecia species, or G. vaginalis cannot be used as a test for therapeutic success or failure. Trichomonas: Vaginal DNA Probe Final 04/16/16- 1434 ML Organism 1 Negative Trichomonas CONTINUED ON NEXT PAGE * ML=Testing performed at Main Lab DEPARTMENT OF PATHOLOGY, [address] [place] [address] Lawson Fischer M.D. Director [facility] # [id number] Patient: DARSHANA FERRO [id number] (Continued) Specimen: [id number] Collected: 04/15/16 Received: 04/15/16 (Continued) Procedure Result Reported Site Trichomonas: Vaginal DNA Probe Final (continued) 04/16/16- 7 The presence or absence of T. vaginalis cannot be used as a test for therapeutic success or failure. * ML - MAIN LAB ([facility]) . END OF REPORT * ML=Testing performed at Main Lab DEPARTMENT OF PATHOLOGY, [address] [place] [address] Lawson Fischer M.D. Director [facility] # [id number] 21 SEE RESULT BELOW Name: DARSHANA FERRO : [address]: Lillian Trevino NP Acct: [id number] Unit: [id number] AGE: 55 Location: [facility] Re04/15/16 SEX: F Status: REG REF SPEC: [id number] MARY: 04/15/16-[address]: Lillian Trevino NP REQ: [id number] RECD: 04/15/16 STATUS: COMP _ SOURCE: URINE SPDESC: ORDERED: Urine Culture COMMENTS: [id number] Procedure Result Reported Site Urine Culture Final 04/17/16- 1014 ML No Growth (<1,000 CFU/mL) * ML - MAIN LAB ([facility]) . END OF REPORT * ML=Testing performed at Main Lab DEPARTMENT OF PATHOLOGY, [address] [place] [address] Lawson Fischer M.D. Director [facility] # [id number] 22 Desirable <150 Borderline high 150-199 High 200-499 Very High >500 23 Desirable <200 Borderline high 200-239 High >239 24 Low <40 Desirable: 40-60 High: >60 25 Desirable: <100 mg/dL Near Optimal: 100-129 mg/dL Borderline High: 130-159 mg/dL High: 160-189 mg/dL Very High: >189 mg/dL 26 [facility] [id number] FASTING 12 HOUR 27 SEE RESULT BELOW Name: DARSHANA FERRO : [address]: Margi Mckee MD Acct: [id number] Unit: [id number] AGE: 54 Location: [facility] Re03/29/15 SEX: F Status: REG REF SPEC: [id number] MARY: 03/29/15-[address]: Margi Mckee MD REQ: [id number] RECD: 04/01/15-1239 STATUS: SOUT _ ORDERED: THIN PREP NON G FINAL DIAGNOSIS Urine, voided: Negative for malignant cells. URINE VOID GROSS DESCRIPTION 40 mls of clear yellow voided urine. Signed (signature on file) Rachele Bey MD 07/09 1624 END OF REPORT * ML=Testing performed at Main Lab DEPARTMENT OF PATHOLOGY, [address] [place] [address] Lawson Fischer M.D. Director [facility] # [id number] 28 *Ascorbic acid is present which may interfere with detection of blood. 29 SEE RESULT BELOW Name: DARSHANA FERRO : [address]: Margi Mckee MD Acct: [id number] Unit: [id number] AGE: 54 Location: [facility] Re03/21/15 SEX: F Status: REG REF SPEC: [id number] MARY: 03/21/15-[address] [facility] [address]: Margi Mckee MD REQ: [id number] RECD: 03/21/15 STATUS: COMP _ SOURCE: URINE SPDESC: ORDERED: Urine Culture Procedure Result Verified Site Urine Culture Final 03/23/15- 1059 ML Organism 1 NORMAL AUDRA [place] Count 10-25,000 (Moderate) CFU/ML * ML - MAIN LAB ([facility]) . END OF REPORT * ML=Testing performed at Main Lab DEPARTMENT OF PATHOLOGY, [address] [place] [address] Lawson Fischer M.D. Director [facility] # [id number] 30 Desirable <150 Borderline high 150-199 High 200-499 Very High >500 31 Desirable <200 Borderline high 200-239 High >239 32 Low <40 Desirable: 40-60 High: >60 33 Desirable: <100 mg/dL Near Optimal: 100-129 mg/dL Borderline High: 130-159 mg/dL High: 160-189 mg/dL Very High: >189 mg/dL 34 FASTING 12 HOUR 35 FASTING 36 Desirable <150 Borderline high 150-199 High 200-499 Very High >500 37 Desirable <200 Borderline high 200-239 High >239 38 Low <40 Desirable: 40-60 High: >60 39 Desirable <100 Near Optimal 100-129 Borderline high 130-159 High 160-189 Very High >189 40 Because ethnic data is not always readily available, this report includes an eGFR for both -Americans and non- Americans. The National Kidney Disease Education Program (NKDEP) does not endorse the use of the MDRD equation for patients that are not between the ages of 18 and 70, are , have extremes of body size, muscle mass, or nutritional status, or are non- or non-. According to the National Kidney Foundation, irrespective of diagnosis, the stage of the disease is based on the level of kidney function: Stage Description GFR(mL/min/1.73 m(2)) 1 Kidney damage with normal or decreased GFR 90 2 Kidney damage with mild decrease in GFR 60-89 3 Moderate decrease in GFR 30-59 4 Severe decrease in GFR 15-29 5 Kidney failure <15 (or dialysis) 41 ---- RUN DATE: 07/19/12 [facility] NMI LIVE PAGE 1 RUN TIME: 4163 Specimen Inquiry RUN USER: INTERFACE -- Name: DARIN BRAYNTDARSHANA Status: REG REF Re07/18/12 Age/Sex: 51/F Unit#: [id number] Location: [facility] : 60 -- Specimen: [id number] SOUT Spec Date:07/18/12-[address] [facility] [address]: Margi Mckee MD Spec Type: CYTOLOGY Received:07/19/12-1015 Copies to: SOURCE ECTOCERVICAL/ENDOCERVICAL Thin Prep with Reflex HPV Test PATIENT INFORMATION ACTUAL COLLECTION DATE: 07/18/12 ? No POST MENOPAUSAL? No HYSTERECTOMY? No PREVIOUS ABNORMAL PAP SMEARS No LAST MENSTRUAL PERIOD: 06/07/12 ADEQUACY OF SPECIMEN Satisfactory for evaluation * Transformation zone component identified * DIAGNOSIS NEGATIVE FOR INTRAEPITHELIAL LESION OR MALIGNANCY * This Pap test was evaluated with the assistance of the TimePadPrep Pap Test Imaging System. The Pap Smear is a screening test designed to aid in the detection of premalign ant and malignant conditions of the uterine cervix. It is not a diagnostic procedure a nd should not be used as the sole means of detecting cervical cancer. Both false- positiv e and false-negative reports do occur. Depending on your risk status, a Pap smear chance uld be obtained and evaluated every one to three years. Initial evaluation performed by Sergei URIBE([facility]) 07/19/12 Final Interpretation electronically signed by: Sergei URIBE([facility]) 07/19/12 1452 -- -- DEPARTMENT OF PATHOLOGY, [address] [place] [address] [facility] Permit #[id number] Lawson Fischer M.D. Director Delmy Dumont M.D. [employer] Dir timothy -- 42 RUN DATE: 11/28/11 [facility] NMI LIVE PAGE 1 RUN TIME: 1150 Specimen Inquiry RUN USER: INTERFACE Name: DARSHANA FERRO Status: REG REF Re11/26/11 Age/Sex: 50/F Unit#: [id number] Location: [facility] : 60 SPEC #: [id number] MARY: 11/26/11 STATUS: SHIRIN REQ #: [id number] RECD: 11/26/[address]: Rafi ROTHMAN,Margi Key SOURCE: THROAT ENTR: 11/26/[address]: CARLOS EDUARDOC: ORDERED: THROAT CULTURE QUERIES: MEDENT REQUISITION # [id number] ACT WKST: B 11/28/11 #1 Procedure Result Verified Site > THROAT CULTURE FULL Final 11/28/11- 1150 ML NORMAL THROAT AUDRA FULL THROAT CULTURES ARE CLINICALLY INDICATED TO DETECT THE PRESENCE OF GROUP A STREP, ARCANOBACTERIUM AND YEAST. - [facility] State Permit #[id number] [facility] [place] [id number] DEPARTMENT OF PATHOLOGY, [facility] [employer] [place], [place] [address] [facility] Permit #[id number] Lawson Fischer M.D. Director Delmy Dumont M.D. [employer] Worker 43 Less Than 1.0......Low Risk of Cardiovascular Disease 1.0-3.0............Medium Risk (<2 Fold Increase) Greater Than 3.0...High Risk (Approximately 2-Fold Increase) The above guidelines are referenced in "Markers of Inflammation and Cardiovascular Disease: Application to Clinical and Public Health Practice." A Statement for Health Professionals from the Centers for Disease Control and Prevention and the [place] [employer]. (Reference: Circulation 2003 107:499-511) SERUM LEVELS OF HIGH SENSITIVITY C-REACTIVE PROTEIN MEASURED BY THE Sponge LXi 725 SYSTEM SHOULD NOT BE INTERPRETTED ABSOLUTE EVIDENCE OF THE PRESENCE OR ABSENCE OF DISEASE. A HIGH SENSITIVITY CRP VALUE SHOULD BE USED IN CONJUNCTION WITH OTHER PERTINENT CLINICAL AND DIAGNOSTIC INFORMATION. 44 CHOLESTEROL INTERPRETATION: Desirable: Less than 200 MG/DL Borderline-High Risk: 200-239 MG/DL High-Risk: 240 MG/DL and over 45 HDL INTERPRETATION: Undesirable: High Risk: Less than 40 MG/DL Desirable: Low Risk: Greater than 60 MG/DL 46 LDL INTERPRETATION: Low Risk Optimal Level: LDL Less than 100 MG/DL Near or Above Optimal: LDL 100-129 MG/DL Borderline High Risk: LDL 130-159 MG/DL High Risk: LDL 160-189 MG/DL Very High Risk: LDL Greater than 189 MG/DL 47 Anion gap measurement may be of limited value in the presence of any alkalosis, especially in a combined acid base disorder. . 48 A metabolite of Naproxen, O-desmethylnaproxen, has been shown to interfere with the Jendrcarlosik-Nano method for measuring total bilirubin. Samples from patients who have taken Naproxen have shown spurious elevation in total bilirubin levels. 49 Because ethnic data is not always readily available, this report includes an eGFR for both -Americans and non- Americans. The National Kidney Disease Education Program (NKDEP) does not endorse the use of the MDRD equation for patients that are not between the ages of 18 and 70, are , have extremes of body size, muscle mass, or nutritional status, or are non- or non-. According to the National Kidney Foundation, irrespective of diagnosis, the stage of the disease is based on the level of kidney function: Stage Description GFR(mL/min/1.73 m(2)) 1 Kidney damage with normal or decreased GFR 90 2 Kidney damage with mild decrease in GFR 60-89 3 Moderate decrease in GFR 30-59 4 Severe decrease in GFR 15-29 5 Kidney failure <15 (or dialysis) 50 CHOLESTEROL INTERPRETATION: Desirable: Less than 200 MG/DL Borderline-High Risk: 200-239 MG/DL High-Risk: 240 MG/DL and over 51 HDL INTERPRETATION: Undesirable: High Risk: Less than 40 MG/DL Desirable: Low Risk: Greater than 60 MG/DL 52 LDL INTERPRETATION: Low Risk Optimal Level: LDL Less than 100 MG/DL Near or Above Optimal: LDL 100-129 MG/DL Borderline High Risk: LDL 130-159 MG/DL High Risk: LDL 160-189 MG/DL Very High Risk: LDL Greater than 189 MG/DL 53 Anion gap measurement may be of limited value in the presence of any alkalosis, especially in a combined acid base disorder. . 54 Note change in reference range as of 06/14/08. The change was based on recommendations from the [place] [employer]. 55 Please note change in reference range effective 08 . 56 A metabolite of Naproxen, O-desmethylnaproxen, has been shown to interfere with the Jendrassik-Nano method for measuring total bilirubin. Samples from patients who have taken Naproxen have shown spurious elevation in total bilirubin levels. 57 Because ethnic data is not always readily available, this report includes an eGFR for both -Americans and non- Americans. The National Kidney Disease Education Program (NKDEP) does not endorse the use of the MDRD equation for patients that are not between the ages of 18 and 70, are , have extremes of body size, muscle mass, or nutritional status, or are non- or non-. According to the National Kidney Foundation, irrespective of diagnosis, the stage of the disease is based on the level of kidney function: Stage Description GFR(mL/min/1.73 m(2)) 1 Kidney damage with normal or decreased GFR 90 2 Kidney damage with mild decrease in GFR 60-89 3 Moderate decrease in GFR 30-59 4 Severe decrease in GFR 15-29 5 Kidney failure <15 (or dialysis) 58 Platelet Clumps Procedures Date Code Description Status 11/10/2018 [id number] Colonoscopy Completed 05/17/2018 [id number] Colposcopy W/Biopsy Cervix/Endocervical Curettage Completed 08/26/2017 [id number] Mammogram Completed 08/19/2016 [id number] Mammogram Completed 08/19/2015 [id number] Mammogram Completed 08/15/2014 [id number] Mammogram Completed 09/12/2013 [id number] Mammogram Completed 12/15/2012 [id number] Colonoscopy Completed 08/17/2011 [id number] Holter Monitor Review (24 hr)dr review & interp only Completed 08/05/2011 [id number] EKG Tracing & Interpretation Completed 10/31/2010 [id number] EKG Tracing & Interpretation Completed 12/28/2007 66421 EKG Tracing & Interpretation Completed 11/04/2007 [id number] Colonoscopy Completed 05/21/2006 30481 EKG Tracing & Interpretation Completed Encounters Type Date Location Provider Dx Diagnosis Office Visit 02/03/2019 [facility] Internal Yoel Greenfield NP J01.90 Acute sinusitis , 11:40a Medicine unspecified Office Visit 12/08/2018 [facility] Riley Parry MD R87.612 Low grade intrepith 8:30a [facility] lesion cyto smr crvx (LGSIL) Office Visit 08/30/2018 [facility] Internal Margi Cotton, R05 Cough 3:40p Medicine M.D. 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 general adult medical exam w/o abnormal findings Z12.4 Encounter for screening for malignant neoplasm of cervix Office Visit 12/09/2017 11:20a [facility] Internal Margi L01.00 Impetigo, Torrey Mckee M.D. unspecified Office Visit 04/16/2017 4:00p [facility] Internal Margi R35.8 Other polyuria Torrey Mckee M.D. N39.0 Urinary tract infection, site not specified N77.1 Vaginitis, vulvitis and vulvovaginitis in dis classd [facility] N76.0 Acute vaginitis Office Visit 03/30/2017 9:20a [facility] Internal Margi Z00.00 Encntr nathan Mckee M.D. general adult medical exam w/o abnormal findings N77.1 Vaginitis, vulvitis and vulvovaginitis in dis classd elsr Office Visit 02/03/2017 [facility] Internal Lillian Trevino, J20.9 Acute bronchitis , 1:00p Medicine N.P. unspecified Office Visit 01/29/2017 [facility] Internal Margi R05 Cough 10:00a Torrey Mckee M.D. Office Visit 01/11/2017 Orthopedic Nawaf F M25.561 Pain in right 8:00a Services Of MD Zak knee C.M.A. M71.21 Synovial cyst of popliteal space [Preciado], right knee M17.11 Unilateral primary osteoarthritis, right knee Office Visit 12/10/2016 9:00a [facility] Internal Margidebbie Mckee, R10.2 Pelvic and Medicine Ambar perineal pain R22.41 Localized swelling, mass and lump, right lower limb R53.83 Other fatigue Office Visit 05/14/2016 1:20p [facility] Internal Margi R35.0 Frequency of Torrey Mckee M.D. micturition N77.1 Vaginitis, vulvitis and vulvovaginitis in dis classd elsr Office Visit 04/15/2016 1:20p [facility] Internal Lillian Trevino, N39.0 Urinary tract Medicine N.P. infection, site not specified R35.0 Frequency of micturition N77.1 Vaginitis, vulvitis and vulvovaginitis in dis classd elsr N76.0 Acute vaginitis N76.2 Acute vulvitis R39.15 Urgency of urination Office Visit 04/10/2016 11:40a [facility] Internal Margi S09.8xxA Other specified Medicine Ambar Mckee injuries of head, initial encounter G44.319 Acute post-traumatic headache, not intractable Office Visit 03/26/2016 10:40a [facility] Internal Margi Z00.00 Encntr for Torrey Mckee M.D. general adult medical exam w/o abnormal findings N94.1 Dyspareunia Office Visit 01/16/2016 10:40a [facility] Internal Yoel Greenfield NP J06.9 Acute upper Medicine respiratory infection, unspecified Office Visit 01/13/2016 1:20p [facility] Internal Luisito Sweeney J20.9 Acute bronchitis, Medicine - MGeovany unspecified [address] Office Visit 03/21/2015 10:20a [facility] Internal Margi V70.0 Examination Torrey Mckee M.D. General Medical Routine AT Health Care Facility 789.09 Pain Abdominal Other Spec Site Office Visit 01/09/2015 2:00p [facility] Internal Yoel Greenfield NP 461.8 Sinusitis Acute Medicine Other Office Visit 12/06/2014 2:40p [facility] Internal Margi 789.00 Pain Abdominal Torrey Mckee M.D. Unspec Site 789.06 Pain Abdominal Epigastric Office Visit 03/15/2014 10:20a [facility] Internal Margi V70.0 Examination Torrey Mckee M.D. General Medical Routine AT Health Care Facility Office Visit 11/01/2013 9:40a [facility] Internal Margi 780.4 Dizziness & Medicine Ambar Mckee Giddiness Office Visit 07/18/2012 10:20a [facility] Internal Margi V70.0 Examination Torrey Mckee M.D. General Medical Routine AT [facility] Care Facility 493.00 Asthma Extrinsic Unspecified 621.9 Uterus Disorders Unspec V04.81 Need For Prophylactic Vaccination & Inoculation/Influenza V72.31 Routine Precision Dancer Examination V76.2 Screening Malignant Neoplasm Cervix Office Visit 05/10/2012 11:40a [facility] Internal Margi 461.9 Sinusitis Acute Torrey Mckee M.D. Unspec 380.4 Impacted Cerumen Office Visit 12/14/2011 11:00a [facility] Internal Margi 784.2 Swelling In Head & Medicine Ambar Mckee Neck Office Visit 11/26/2011 11:20a [facility]i 462 Pharyngitis Acute Medicine Ambar Mckee Office Visit 08/28/2011 1:00p DO Not Use Margi 309.9 Adjustment Ranjit Mckee M.D. Reaction Unspec Office Visit 08/05/2011 9:40a DO Not Use Sandra Marsha, 785.1 Palpitations Ranjit Villalta, FACP 780.52 Insomnia Unspecified v04.81 Need For Prophylactic Vaccination & Inoculation/Influenza Office Visit 04/20/2011 DO Not Use Lillian Belinda, 461.9 Sinusitis Acute 11:20a [employer] [facility]-[place] N.P. Unspec Office Visit 12/12/2010 DO Not Use Margi 789.00 Pain Abdominal 1:15p Ranjit Mckee M.D. Unspec Site 493.00 Asthma Extrinsic Unspecified Office Visit 11/05/2010 DO Not Use Lillian Varmonique, 995.27 Other Drug 2:30p [employer] N.P. Allergy Office Visit 10/31/2010 DO Not Use Margi V70.0 Examination 9:15a Ranjit Mckee M.D. General Medical Routine AT Health Care Facility 789.00 Pain Abdominal Unspec Site 698.9 Pruritic Disorder Unspec V06.1 Jsegokwxlp-Dpstimu-Ernetypx Combined (DTaP) 272.4 Hyperlipidemia Other Unspec Office Visit 09/30/2010 DO Not Use Sandrajarrell Larson, 465.9 URI Upper 2:45p Ranjit Villalta, FACP Respiratory Infections Acute Unspec Sites Office Visit 08/11/2010 DO Not Use Margi 272.4 Hyperlipidemia 3:15p Ranjit Mckee M.D. Other Unspec V04.81 Need For Prophylactic Vaccination & Inoculation/Influenza Office Visit 08/16/2009 DO Not Use Radhoward, 616.10 Vaginitis & 3:30p Ranjit Villasenor M.D. Vulvovaginitis Unspec 300.00 Anxiety State Unspec Office Visit 07/12/2009 DO Not Use Lillian Varn, 461.9 Sinusitis Acute 11:00a [employer] N.P. Unspec Office Visit 06/12/2008 DO Not Use Radhoward, 625.4 Premenstrual 1:45p Ranjit Villasenor M.D. Tension Syndromes Office Visit 04/13/2008 DO Not Use Lillian Trevino, 462 Pharyngitis Acute 3:45p Alejandro-[place] N.P. Office Visit 12/28/2007 DO Not Use Radhoward, 785.1 Palpitations 11:30a Ranjit Villasenor M.D. Office Visit 10/24/2007 DO Not Use Lillian Trevino, 461.9 Sinusitis Acute 10:30a Alejandro-[place] N.P. Unspec Office Visit 10/12/2007 DO Not Use Lillian Trevino, 461.9 Sinusitis Acute 10:00a Alejandro-[place] N.P. Unspec Office Visit 08/30/2007 DO Not Use Radhoward, 787.99 Digestive 1:30p Ranjit Villasenor M.D. Symptoms Other Office Visit 08/17/2007 DO Not Use Farzaneh, 466.0 Bronchitis Acute 11:30a Ranjit Villasenor M.D. Office Visit 08/12/2007 DO Not Use Sandrajarrell Larson, 786.2 Cough 10:45a Ranjit Villalta, FACP V04.81 Need For Prophylactic Vaccination & Inoculation/Influenza Office Visit 07/19/2007 DO Not Use Lillian Trevino, 681.02 Onychia & 10:00a Alejandro-[facility] N.P. Paronychia Finger Office Visit 10/12/2006 DO Not Use Farzaneh 461.9 Sinusitis Acute 1:00p Ranjit Villasenor M.D. Unspec Office Visit 05/21/2006 DO Not Use Farzaneh 786.50 Pain Chest 2:45p Ranjit Villasenor M.D. Unspec Plan of Treatment Future Appointment(s):03/10/2019 3:00 pm - Riley Parry MD at [facility]04/24/2019 11:00 am - Margi Mckee M.D. at [facility] Internal Loqaqoyp16/30/2019 - Margi Mckee M.D.R05 CoughComments:Take the ProAir as neededStart the Augmentin if fever or green sputumConsider taking a day off work
--- OUTSIDE RECORDS SUMMARY | 2019-03-03 10:24 | XMS REPORT | Continuity of Care Document ---
:1960 External Reference #:[id number] Author Name Darshana Moreland Care Team Providers Name Role Phone Margi Mckee MD Primary Care Physician Unavailable Payers Date Identification Numbers Payment Provider Subscriber Effective: 2017 Policy Number: [id number] BS Facets Darshana Ha PayID: [id number] [address] [address] [place] [address] Advance Directives Description No Information Available Problems Date Description Provider Status Onset: 08/05/2011 Extrinsic asthma without status Margi Mckee M.D. Active asthmaticus Onset: 08/05/2011 Hyperlipidemia Margi Mckee M.D. Active Onset: 08/05/2011 Palpitations Jacklyn Moy M.D. Active Family History Date Family Member(s) Observation Comments General Heart Disease General Diabetes General Leukemia General Stroke : (age Father due to Leukemia also colon cancer 73 Years) Father Colon Cancer : (age Mother due to Stroke DM, HTN [place] at age 62, 83 Years) at 83. 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 ETOH Use Has consumed alcohol in alcohol dependence, the past quit 1989 Tobacco Use Start: Unknown End: Patient is a former 1 ppd quit in her Unknown smoker 40's. Smoking Status Reviewed: 02/03/19 Patient is a former 1 ppd quit in her smoker 40's. Exercise Exercises regularly Daily. 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 Allergies, Adverse Reactions, Alerts Date Description Reaction Status Severity Comments 08/08/2010 Tetracycline Nausea and Vomiting Active Moderate 08/11/2010 Erythromycin Nausea and Vomiting Active Moderate Medications Medication Date Status Form Strength Qnty SIG Indications Ordering Provider Amoxicillin/Cl 02/03 Active Tablets 875-125mg 20tab take one J01.90 Yoel avulanate s tablet q12 KARINA Greenfield Potassium hours for 10 days Fluconazole 09/06 Active Tablets 150mg 2tabs one by mouth J01.80 Yoel February repeat KARINA Greenfield in 3 days as needed Guaifenesin-Co 08/30 Active Solution 100-10mg/ 240ml 5-10 Margi deine 5ML milliliters Cotton, every 6 M.D. hours as needed for cough Mupirocin 12/09 Active Cream 2% 15gm apply twice L01.00 Margi Calcium a day Ambar Mckee Ibuprofen 03/30 Active Tablets 600mg 60tab take one s tablet by Cotton, mouth three M.D. times a day as needed Proair HFA 01/07 Active Aerosol 108(90Bas 8.500 2 puffs 4 e) gm times daily Cotton, mcg/Act as needed M.D. Augmentin 08/30 Hx Tablets 875-125mg 20tab one by mouth R05 s every 12 Cotton, - hours for 10 M.D. Azithromycin 08/30 Hx Tablets 250mg 6tabs 2 PO qd x 3 days Cotton, - M.D. 09/06 Ciprofloxacin 04/16 Hx Tablets 250mg 6tabs 1 by mouth N39.0 Margi HCL twice a day Cotton, - for 3 days M.D. 12/08 Amoxicillin/Cl 01/30 Hx Tablets 875-125mg 20tab 1 tablet Margi avulanate s twice daily Cotton, Potassium - for 10 days M.D. 02/10 Benzonatate 01/29 Hx Capsules 200mg 20cap take 1 s capsule by Cotton, - mouth three M.D. 04/12 times a day if needed for cough Cleocin 05/14 Hx Cream 2% 40gm 1 applicator N77.1 intravaginal Cotton, - ly at M.D. 01/10 bedtime for 7 nights Fluconazole 04/20 Hx Tablets 150mg 2tabs one by mouth February repeat Varn, N.P. - in 3 days as 05/14 needed Augmentin 01/15 Hx Tablets 875-125mg 20tab 1 tablet by J06.9 Yoel s mouth q12 Jean Pierre, OUTSOLE COMPRESSOR - hours for 10 Diflucan 01/15 Hx Tablets 150mg 2tabs take 1 J06.9 Yoel tablet. if Jean Pierre, OUTSOLE COMPRESSOR - symptoms 01/23 persist february take second tablet in 3 days. Levofloxacin 01/12 Hx Tablets 500mg 7tabs 1 tablet by J20.9 Luisito mouth every Sweeney, - day M.D. 01/15 No Active 03/21 Hx Unknown Medications /2014 - 03/21 Proair HFA 03/21 Hx Aerosol 108(90Bas 8.5un 2 puffs 4 V70.0 e) its times daily Cotton, - mcg/Act as needed M.D. 01/15 No Active 01/09 Hx Unknown Medications /2014 - 01/09 Augmentin 01/09 Hx Tablets 875-125mg 14tab 1 tablet by 461.8 Yoel s mouth q12 Jean Pierre, OUTSOLE COMPRESSOR - hours for 7 Fluconazole 01/09 Hx Tablets 150mg 2tabs one by mouth 461.8 Yoel February repeat Jean Pierre, OUTSOLE COMPRESSOR - in 3 days as 02/22 needed Proair HFA 07/18 Hx Aerosol 108(90Bas 8.500 2 puffs 4 493.00 Margi /2012 e) mcg/ac gm times daily Cotton, - as needed M.D. 01/09 Amoxicillin 05/10 Hx Capsules 500mg 30cap 1 tab po tid 461.9 Margi /2011 s for 10 days Cotton, - M.D. 07/17 Amoxicillin 11/26 Hx Capsules 500mg 30cap 1 tab po tid 462 Margi /2011 s for 10 days Cotton, - M.D. 12/14 Diflucan 11/26 Hx Tablets 150mg 2tabs 1 tablet one 462 Margi /2012 time. february Cotton, - repeat 3 M.D. 07/17 days later if needed Augmentin 04/20 Hx Tablets 875-125mg 20tab one by mouth 461.9 Margi s every 12 Cotton, - hours for M.D. 04/30 ten Fluticasone 04/20 Hx Suspension 50mcg/Act 1Mont 1 spray each 461.9 Margi h nostril Cotton, - daily as M.D. 05/04 needed Proair HFA 12/12 Hx Aerosol 108(90Bas 8.500 2 puffs 4 493.00 Margi /2011 e) mcg/ac gm times daily Cotton, - as needed M.D. 08/05 Augmentin 10/02 Hx Tablets 875-125mg 20tab 1 tab by Sandra s mouth twice Marsha, - a day M.D., [facility] 10/30 Nasonex 09/30 Hx Suspension 50mcg/Act 17gm 1 spray each nostril Marsha, - daily M.D., [facility] 09/30 Ibuprofen 00 Hx Tablets 600mg 60tab 1 by mouth Margi / s three times Cotton, - a day as M.D. 03/30 Medications Administered in Office Medication Date Status Form Strength Qnty SIG Indications Ordering Provider PPD 04/23/20 Administered Injection Margi 16 Ambar Mckee Immunizations CPT Code Status Date Vaccine Reaction Lot # [id number] Given 07/20/2018 Influenza Virus Vaccine, No immediate [id number] Quadrivalent, Split, reaction...[id number] Preservative Free 02605 Given 08/03/2017 Influenza Virus Vaccine, [id number] Quadrivalent, Split, Preservative Free 04183 Given 08/07/2016 Influ Virus Vaccine, [id number] Quadrivalent, Split Virus, [place] [address] Given 08/02/2015 Influenza Virus Vaccine, [id number] Quadrivalent, Split, Preservative Free 99253 Given 08/01/2014 Influenza Virus Vaccine, [id number] Quadrivalent, Split, Preservative Free 79267 Given 08/11/2013 Flu Vaccine Split Virus [id number] Preservative Free For Indiv 3Yr Older [id number] Given 07/18/2012 Fluzone Vaccine [id number] 29398 Given 08/05/2011 Influenza Virus 3Yrs & Over [id number] 19831 Given 10/31/2010 Tdap - Tetanus/Diptheria/Acellular Pertussis 75984 Given 08/11/2010 Influenza Virus 3Yrs & Over 96090 Given 11/04/2009 Influenza Virus Vaccine, Pandemic Formulation 60358 Given 11/04/2009 Administration Swine Flu Shot 16453 Given 08/05/2009 Influenza Virus 3Yrs & Over 99624 Given 08/06/2008 Influenza Virus 3Yrs & Over 01507 Given 08/12/2007 Influenza Virus 3Yrs & Over 93429 Given 08/12/2007 Influenza Virus 3Yrs & Over 49491 Given 09/03/2006 Influenza Virus 3Yrs & Over 17926 Given 09/03/2006 Influenza Virus 3Yrs & Over Vital Signs Date Vital Result Comment 02/03/2019 11:40am Height 64.75 inches 5'4.75" Weight [...] Result H/L Range Note Laboratory test 12/08/2018 [facility] Cytology SEE RESULT 1 , [address] [place] [address] [phone] Laboratory test 11/10/2018 [facility] Surgical Interface SEE RESULT [address] [place] [address] [phone] Laboratory test 05/17/2018 [facility] Surgical Pathology SEE RESULT [address] [place], [place] [address] [phone] Laboratory test 04/21/2018 [facility] Cytology SEE RESULT 5 , [address] [place], [place] [address] [phone] Lipid Profile 03/31/2018 [facility] Triglycerides 79 mg/dL 7 (Trig/Chol/HDL) [address] [place] [address] [phone] Cholesterol 236 mg/dL 8 HDL Cholesterol 89.6 mg/dL 9 LDL Cholesterol 131 mg/dL 10 Laboratory test 03/31/2018 [facility] Glucose 73 mg/dL N 70- [address] [place] [address] [phone] Urine Culture And 04/16/2017 [facility] Urine Culture SEE RESULT [address] [place], [place] [address] [phone] GC/Chlamydia 04/16/2017 [facility] Chlamydia Negative N Negative Amplified Rna [address] [place] [address] Rna [phone] Neisseria gonorrhoeae (GC) Rna Negative N Negative Ua Routine 04/16/2017 [facility] Ua Specific [place] 1.005 Ua PH 6 Ua Color yellow Ua Appera cl Ua WBC trace Ua Protein neg Ua Glucose norm Ua Ketones neg Ua Bilirubin neg Ua Urobilinogen norm Ua Nitrite neg Ua Occult Blood neg Laboratory test 03/30/2017 [facility] Gardnerella/Yeast: SEE RESULT [address] Vaginal Dna BELOW [place], [place] [address] [phone] Basic Metabolic 03/26/2017 [facility] Sodium 138 mmol/L N 133 - Panel [address] [place] [address] [phone] Potassium 4.1 mmol/L N 3.5-5.0 Chloride 102 mmol/L N 101-111 Co2 Carbon Dioxide 32 mmol/L N 22-32 Anion Gap 4 mmol/L N 2-11 Glucose 77 mg/dL N 70-100 Blood Urea Nitrogen 10 mg/dL N 6-24 Creatinine 0.77 mg/dL N 0.51-0.95 BUN/Creatinine Ratio 13.0 N 8-20 Calcium 9.5 mg/dL N 8.6-10.3 Egfr Non- 77.5 N >60 Egfr 99.7 N >60 13 Lipid Profile 03/26/2017 [facility] Triglycerides 88 mg/dL N 14 (Trig/Chol/HDL) [address] [place] [address] [phone] Cholesterol 225 mg/dL N 15 HDL Cholesterol 78.0 mg/dL N 16 LDL Cholesterol 129 mg/dL N 17 Ua Routine 05/14/2016 [facility] Ua Specific [place] 1.010 Ua PH 6 Ua Color yellow Ua Appera clear Ua WBC neg Ua Protein neg Ua Glucose neg Ua Ketones neg Ua Bilirubin neg Ua Urobilinogen neg Ua Nitrite neg Ua Occult Blood non hemo trace Laboratory test 05/14/2016 [facility] Gardnerella/Yeast: SEE RESULT [address] [place] [address] [phone] Urine Culture And 05/14/2016 [facility] Urine Culture SEE RESULT [address] [place] [address] [phone] Laboratory test 04/15/2016 [facility] Gardnerella/Yeast: SEE RESULT [address] [place] [address] [phone] Urine Culture And 04/15/2016 [facility] Urine Culture SEE RESULT [address] [place] [address] [phone] Ua Routine 04/15/2016 [facility] Ua Specific [place] 1.010 Ua PH 5 Ua Color yellow Ua Appera clear Ua WBC neg Ua Protein neg Ua Glucose neg Ua Ketones neg Ua Bilirubin neg Ua Urobilinogen neg Ua Nitrite neg Ua Occult Blood neg Lipid Profile 03/19/2016 [facility] Triglycerides 79 mg/dL N 22 (Trig/Chol/HDL) [address] [place] [address] [phone] Cholesterol 234 mg/dL N 23 HDL Cholesterol 91.9 mg/dL N 24 LDL Cholesterol 126 mg/dL N 25 Laboratory test 03/19/2016 [facility] Glucose 73 mg/dL N 70- [address] [place] [address] [phone] Laboratory test 01/13/2016 [facility] Rapid Group A neg finding Strep Laboratory test 03/29/2015 [facility] Cytology SEE RESULT [address] [place] [address] [phone] Urinalysis 03/29/2015 [facility] Urine Color Straw N Profile [address] [place] [address] [phone] Urine Appearance Clear N Urine Specific [place] 1.006 Low 1.010-1.030 Urine pH 6.0 N 5-9 Urine Urobilinogen Negative N Negative Urine Ketones Negative N Negative Urine Protein Negative N Negative Urine Leukocytes Negative N Negative Urine Blood Negative N Negative * * Abnormal Negative 28 Urine Nitrite Negative N Negative Urine Bilirubin Negative N Negative Urine Glucose Negative N Negative Urinalysis Profile 03/21/2015 [facility] Urine Color Straw N [address] [place] [address] [phone] Urine Appearance Clear N Urine Specific [place] 1.006 Low 1.010-1.030 Urine pH 8.0 N [...] Epithelial Present Abnormal Absent Laboratory test 03/21/2015 [facility] Urine Culture And SEE RESULT [address] [place] [address] [phone] Lipid Profile 03/13/2015 [facility] Triglycerides 94 mg/dL N 30 (Trig/Chol/HDL) [address] [place] [address] [phone] Cholesterol 193 mg/dL N 31 HDL Cholesterol 75.9 mg/dL N 32 LDL Cholesterol 98 mg/dL N 33 Laboratory test 03/13/2015 [facility] Glucose 76 mg/dL N 70- [address] [place] [address] [phone] Lipid Profile 03/07/2014 [facility] Triglycerides 78 mg/dL N 35, 36 (Trig/Chol/HDL) [address] [place] [address] [phone] Cholesterol 195 mg/dL N 37 HDL Cholesterol 77.6 mg/dL N 38 LDL Cholesterol 102 mg/dL N 39 Comp Metabolic Panel 11/01/2013 [facility] Sodium 135 mmol/L 133-145 [address] [place] [address] [phone] Potassium 4.3 mmol/L 3.5-5.0 Chloride 101 mmol/L [...] Egfr 113.0 >60 40 CBC With 11/01/2013 [facility] White Blood 8.3 10^3/uL 4.8- 10.[address] [place] [address] [phone] Red Blood Count 4.03 10^6/uL 4.0-5.4 Hemoglobin [...] 0-6 RBC Morphology Normal Normal Laboratory 07/18/2012 [facility] Cytology 41 test finding [address] <SEE NOTE> [place], [place] [address] [phone] Laboratory 11/26/2011 [facility] Throat [address] Culture Full <SEE NOTE> [place], [place] [address] [phone] Thyroid Panel 08/06/2011 [facility] Free 0.67 ng/dL 0.61 DRIVE Thyroxine -1.2 [place] [address] [phone] Thyroxine 5.1 g/dL 5-12 Laboratory test 08/06/2011 [facility] TSH 1.47 0.34-5.[address] MIU/ML [place], [place] [address] [phone] Laboratory test 10/31/2010 [facility] C Reactive < 0.2 mg/L < 7.[address] [place] [address] Sensit [phone] Lipid Profile 10/31/2010 [facility] Triglyceride 68 mg/dL 40- 200 (Trig/Chol/HDL) [address] [place], [place] [address] [phone] Cholesterol 192 mg/dL Less Than 200 44 High Density Lipoprotein 77 mg/dL High 40-60 45 Cholesterol/HDL Ratio 2.49 AVERAGE 1-4.44 Low Density Lipoprotein 101 mg/dL High Less Than 100 46 Comp Metabolic Panel 10/31/2010 [facility] Sodium 136 mmol/L 135-145 [address] [place] [address] [phone] Potassium 4.4 mmol/L 3.5-5.0 Chloride 102 mmol/L [...] 98.0 > 60 49 Laboratory test 06/10/2010 [facility] TSH 1.57 MIU/ML 0.34- 5.60 finding [address] [place] [address] [phone] Lipid Profile 06/10/2010 [facility] Triglyceride 76 mg/dL 40- 200 (Trig/Chol/HDL) [address] [place] [address] [phone] Cholesterol 215 mg/dL High Less Than 200 50 High Density Lipoprotein 61 mg/dL High 40-60 51 Cholesterol/HDL Ratio 3.52 AVERAGE 1-4.44 Low Density Lipoprotein 139 mg/dL High Less Than 100 52 Comp Metabolic Panel 06/10/2010 [facility] Sodium 139 mmol/L 135-145 [address] [place] [address] [phone] Potassium 4.1 mmol/L 3.5-5.0 Chloride 105 mmol/L [...] 85.6 > 60 57 Manual Differential 06/10/2010 [facility] Polysegmented 61 % 38-[address] [address] [phone] Band Neutrophil 2 % 0-8 Lymphocyte 25 % 25-47 Monocyte 8 % 0-13 Eosinophil 2 % 0-6 Basophil 1 % 0-2 Atypical Lymph 1 % 0-6 Absolute Neutrophil Count 3.2 Anisocytosis SLIGHT Ovalocytes FEW CBC With 06/10/2010 [facility] White Blood 5.1 CUMM 4.8-10.8 Electronic Diff [address] [place] [address] [phone] Red Cell Count 4.00 CUMM Low 4.2-5.4 Hemoglobin 12.7 g/dL 12.0-16.0 Hematocrit 37 % 35-47 Mean Corpuscular Volume 92 um3 79-97 Mean Corpuscular Hemoglob 32 pg High 27-31 Mean Corpuscular HGB Cone 34 g/dL 32-36 Redcell Distribution WDTH 13 % 10.5-15 Platelet Count 196 CUMM 150-450 Mean Platelet Volume 8.7 um3 7.4-10.4 58 1 [id number] 2 SEE RESULT BELOW Name: DARSHANA HA : [address]: Riley Parry MD Acct: [id number] Unit: [id number] AGE: 58 Location: [facility] Re12/08/18 SEX: F Status: REG REF SPEC: [id number] MARY: 12/08/[address]: Riley Parry MD REQ: [id number] RECD: 12/08/18 STATUS: SOUT _ ORDERED: TP IMAGE ANALYS, ELECTRONICS LEAD PHYS INTERP, HPV/Thin Prep COMMENTS: [id number] EPITHELIAL CELL ABNORMALITIES Atypical squamous cells of [...] and Reported on: Rachele Bey MD 12/13/18 0991 This Pap test was evaluated with the assistance of the InPact.mePrep Test Imaging System. Due to cytologic findings at the concession attendant microscope, comprehensive manual rescreening by a Practice Assistant may be required. The Pap Smear is [...] years. END OF REPORT DEPARTMENT OF PATHOLOGY, [address] [place] [address] Lawson Fischer M.D. Director [facility] # [id number] 3 SEE RESULT BELOW Name: DARSHANA HA : [address]: Jayna Orta MD Acct: [id number] Unit: [id number] AGE: 57 Location: [facility] Re11/10/18 SEX: F Status: DEP REF SPEC: [id number] MARY: 11/10/18-1313 [facility] DR: Jayna Restrepo MD REQ: [id number] RECD: 11/10/18161 STATUS: JEROMY BABCOCK DR: Margi [...] 1205 END OF REPORT DEPARTMENT OF PATHOLOGY, [address] [place] [address] Lawson Fischer M.D. Director [facility] # [id number] 4 SEE RESULT BELOW Name: DARSHANA HA : [address]: Riley Parry MD Acct: [id number] Unit: [id number] AGE: 57 Location: [facility] Re05/17/18 SEX: F Status: REG REF SPEC: [id number] MARY: 05/17/18-1149 [facility] DR: Riley Parry MD REQ: [id number] RECD: 05/17/184700 STATUS: SOUT _ ORDERED: LEVEL 4/2, IMMUNO-FIRST/2 COMMENTS: [id number] FINAL DIAGNOSIS 1. Uterus, endocervix, curettage: -- [...] CONTINUED ON NEXT PAGE DEPARTMENT OF PATHOLOGY, [address] [place] [address] Lawson Fischer M.D. Director [facility] # [id number] RUN DATE: 05/20/18 [facility] LAB LIVE PAGE 2 Patient: DARSHANA HA [id number] (Continued) GROSS DESCRIPTION (Continued) GROSS DESCRIPTION (Continued) 2. The specimen is received in formalin labeled, 6:00, and consists of a 0.3 x 0.3 x 0.2 cm fisher-white irregular soft tissue fragment which is inked and submitted entirely in one cassette. Signed by and Reported on: Lawson Fischer MD 1256 END OF REPORT DEPARTMENT OF PATHOLOGY, [address] [place] [address] Lawson Fischer M.D. Director [facility] # [id number] 5 [id number] 6 SEE RESULT BELOW Name: DARSHANA FERRO : [address]: Riley Parry MD Acct: [id number] Unit: [id number] AGE: 57 Location: [facility] Re04/21/18 SEX: F Status: REG REF SPEC: [id number] MARY: 04/21/[address]: Riley Parry MD REQ: [id number] RECD: 04/21/18 STATUS: SOUT _ ORDERED: TP IMAGE ANALYS, ELECTRONICS LEAD PHYS INTERP, HPV/Thin Prep COMMENTS: [id number] EPITHELIAL CELL ABNORMALITIES Atypical squamous cells, cannot [...] and Reported on: Rachele Bey MD 04/26/18 9694 This Pap test was evaluated with the assistance of the ThinPrep Test Imaging System. Due to cytologic findings at the concession attendant microscope, comprehensive manual rescreening by a Practice Assistant may be required. The Pap Smear is [...] years. END OF REPORT DEPARTMENT OF PATHOLOGY, [address] [place] [address] Lawson Fischer M.D. Director [facility] # [id number] 7 Desirable: <150 Borderline High: 150-199 High: 200-499 Very High: >500 8 Desirable: <200 Borderline High: 200-239 High: >239 9 Low: <40 Desirable: 40-60 High: >60 10 Desirable: <100 Near Optimal: 100-129 Borderline High: 130-159 High: 160-189 Very High: >189 11 SEE RESULT BELOW Name: DARSHANA FERRO : [address]: Margi Mckee MD Acct: [id number] Unit: [id number] AGE: 56 Location: [facility] Re04/16/17 SEX: F Status: REG REF SPEC: [id number] MARY: 04/16/17-1644 [facility] DR: Margi Mckee MD REQ: [id number] RECD: 04/16/17 STATUS: COMP _ SOURCE: URINE SPDESC: ORDERED: Urine Culture COMMENTS: [id number] Urine Source: Random Procedure Result Reported Site Urine Culture Final 04/17/17- 1610 ML No Growth (<1,000 CFU/mL) * ML - MAIN LAB ([facility]) . END OF REPORT * ML=Testing performed at Main Lab DEPARTMENT OF PATHOLOGY, [address] [place] [address] Lawson Fischer M.D. Director [facility] # [id number] 12 SEE RESULT BELOW Name: DARIN BRYANTDARSHANA : [address]: Margi Mckee MD Acct: [id number] Unit: [id number] AGE: 56 Location: [facility] Re03/30/17 SEX: F Status: REG REF SPEC: [id number] MARY: 03/30/17-1009 [facility] DR: Margi Mckee MD REQ: [id number] RECD: 03/30/17 STATUS: COMP _ SOURCE: VAGINAL SPDESC: ORDERED: Cielo,Yeast DNA, Trich DNA COMMENTS: [id number] Procedure Result Reported Site Gardnerella/Yeast: Vaginal DNA [...] performed at Main Lab DEPARTMENT OF PATHOLOGY, [address] [place] [address] Lawson Fischer M.D. Director [facility] # [id number] Patient: DARSHANA FERRO [id number] (Continued) Specimen: [id number] Collected: 03/30/17-1008 Received: 03/30/17-1834 (Continued) Procedure Result Reported Site Trichomonas: Vaginal DNA Probe Final (continued) 03/31/17- 999 The presence or absence of T. vaginalis cannot be used as a test for therapeutic success or failure. * ML - MAIN LAB ([facility]) . END OF REPORT * ML=Testing performed at Main Lab DEPARTMENT OF PATHOLOGY, [address] [place] [address] Lawson Fischer M.D. Director [facility] # [id number] 13 Because ethnic data is not always [...] [address]: Margi Mckee MD Acct: [id number] Unit: [id number] AGE: 55 Location: [facility] Re05/14/16 SEX: F Status: REG REF SPEC: [id number] MARY: 05/14/16-1406 [facility] [address]: Margi Mckee MD REQ: [id number] RECD: 05/14/16 STATUS: COMP _ SOURCE: VAGINAL SPDESC: ORDERED: Cielo,Yeast DNA, Trich DNA COMMENTS: [id number] Procedure Result Reported Site Gardnerella/Yeast: Vaginal DNA [...] performed at Main Lab DEPARTMENT OF PATHOLOGY, [address] [place] [address] Lawson Fischer M.D. Director [facility] # [id number] Patient: DARSHANA FERRO [id number] (Continued) Specimen: [id number] Collected: 05/14/16 Received: 05/14/16 (Continued) Procedure Result Reported Site Trichomonas: Vaginal DNA Probe Final (continued) 05/15/16- 1047 The presence or absence of T. vaginalis cannot be used as a test for therapeutic success or failure. * ML - MAIN LAB ([facility]) . END OF REPORT * ML=Testing performed at Main Lab DEPARTMENT OF PATHOLOGY, [address] [place] [address] Lawson Fischer M.D. Director [facility] # [id number] 19 SEE RESULT BELOW Name: DARIN BRYANTDARSHANA : [address]: Margi Mckee MD Acct: [id number] Unit: [id number] AGE: 55 Location: [facility] Re05/14/16 SEX: F Status: REG REF SPEC: [id number] MARY: 05/14/16-[address]: Margi Mckee MD REQ: [id number] RECD: 05/14/16 STATUS: COMP _ SOURCE: URINE SPDESC: ORDERED: Urine Culture Procedure Result Reported Site Urine Culture Final 05/16/16- 831 ML No growth of clinically significant organisms * ML - MAIN LAB ([facility]) . END OF REPORT * ML=Testing performed at Main Lab DEPARTMENT OF PATHOLOGY, [address] [place] [address] Lawson Fischer M.D. Director [facility] # [id number] 20 SEE RESULT BELOW Name: DARSHANA FERRO : [address]: Lillian Trevino NP Acct: [id number] Unit: [id number] AGE: 55 Location: [facility] Re04/15/16 SEX: F Status: REG REF SPEC: [id number] MARY: 04/15/16-1457 [facility] [address]: Lillian Trevino NP REQ: [id number] RECD: 04/15/16 STATUS: COMP _ SOURCE: VAGINAL [...] performed at Main Lab DEPARTMENT OF PATHOLOGY, [address] [place] [address] Lawson Fischer M.D. Director [facility] # [id number] Patient: DARSHANA FERRO [id number] (Continued) Specimen: [id number] Collected: 04/15/16 Received: 04/15/16 (Continued) Procedure Result Reported Site Trichomonas: Vaginal DNA Probe Final (continued) 04/16/16- 0 The presence or absence of T. vaginalis cannot be used as a test for therapeutic success or failure. * ML - MAIN LAB ([facility]) . END OF REPORT * ML=Testing performed at Main Lab DEPARTMENT OF PATHOLOGY, [address] [place] [address] Lawson Fischer M.D. Director [facility] # [id number] 21 SEE RESULT BELOW Name: DARSHANA FERRO : [address]: Lillian Trevino NP Acct: [id number] Unit: [id number] AGE: 55 Location: [facility] Re04/15/16 SEX: F Status: REG REF SPEC: [id number] MARY: 04/15/16-[address]: Lillian Trevino NP REQ: [id number] RECD: 04/15/16 STATUS: COMP _ SOURCE: URINE SPDESC: ORDERED: Urine Culture COMMENTS: [id number] Procedure Result Reported Site Urine Culture Final 04/17/16- 1014 ML No Growth (<1,000 CFU/mL) * ML - MAIN LAB ([facility]) . END OF REPORT * ML=Testing performed at Main Lab DEPARTMENT OF PATHOLOGY, [address] [place] [address] Lawson Fischer M.D. Director [facility] # [id number] 22 Desirable <150 Borderline high 150-199 High 200-499 Very High >500 23 Desirable <200 Borderline high 200-239 High >239 24 Low <40 Desirable: 40-60 High: >60 25 Desirable: <100 mg/dL Near Optimal: 100-129 mg/dL Borderline High: 130-159 mg/dL High: 160-189 mg/dL Very High: >189 mg/dL 26 [facility] [address] FASTING 12 HOUR 27 SEE RESULT BELOW Name: DARSHANA FERRO : [address]: Margi Mckee MD Acct: [id number] Unit: [id number] AGE: 54 Location: [facility] Re03/29/15 SEX: F Status: REG REF SPEC: [id number] MARY: 03/29/15-[address]: Margi Mckee MD REQ: [id number] RECD: 04/01/15-1239 STATUS: SOUT _ ORDERED: THIN PREP NON G FINAL DIAGNOSIS Urine, voided: Negative for malignant cells. URINE VOID GROSS DESCRIPTION 40 mls of clear yellow voided urine. Signed (signature on file) Rachele Bey MD 07/09 1624 END OF REPORT * ML=Testing performed at Main Lab DEPARTMENT OF PATHOLOGY, [address] [place] [address] Lawson Fischer M.D. Director [facility] # [id number] 28 *Ascorbic acid is present which may interfere with detection of blood. 29 SEE RESULT BELOW Name: DARSHANA FERRO : [address]: Margi Mckee MD Acct: [id number] Unit: [id number] AGE: 54 Location: [facility] Re03/21/15 SEX: F Status: REG REF SPEC: [id number] MARY: 03/21/15-1138 [facility] DR: Margi Mckee MD REQ: [id number] RECD: 03/21/15 STATUS: COMP _ SOURCE: URINE SPDESC: ORDERED: Urine Culture Procedure Result Verified Site Urine Culture Final 03/23/15- 1059 ML Organism 1 NORMAL AUDRA Mitchell Count 10-25,000 (Moderate) CFU/ML * ML - MAIN LAB ([facility]) . END OF REPORT * ML=Testing performed at Main Lab DEPARTMENT OF PATHOLOGY, [address] [place] [address] Lawson Fischer M.D. Director [facility] # [id number] 30 Desirable <150 Borderline high 150-199 High [...] (or dialysis) 41 ---- RUN DATE: 07/19/12 [facility] NMI LIVE PAGE 1 RUN TIME: 7833 Specimen Inquiry RUN USER: INTERFACE -- Name: DARIN BRYANTDARSHANA Status: REG REF Re07/18/12 Age/Sex: 51/F Unit#: [id number] Location: [facility] : 60 -- Specimen: [id number] SOUT Spec Date:07/18/12-1128 [facility] Dr: Margi Mckee MD Spec Type: [...] was evaluated with the assistance of the InPact.mePrep Pap Test Imaging System. The Pap Smear [...] three years. Initial evaluation performed by Sergei URIBE([facility]) 07/19/12 Final Interpretation electronically signed by: Sergei URIBE([facility]) 07/19/12 1452 -- -- DEPARTMENT OF PATHOLOGY, [address] [place] [address] [facility] Permit #[id number] Lawson Fischer M.D. Director Delmy Dumont M.D. Emergency Department Physician Dir timothy -- 42 RUN DATE: 11/28/11 [facility] NMI LIVE PAGE 1 RUN TIME: 1150 Specimen Inquiry RUN USER: INTERFACE Name: DARSHANA FERRO Status: REG REF Re11/26/11 Age/Sex: 50/F Unit#: [id number] Location: [facility] : 60 SPEC #: [id number] MARY: 11/26/11 STATUS: SHIRIN REQ #: [id number] RECD: 11/26/[address]: Rafi ROTHMAN,Margi Key SOURCE: THROAT ENTR: 11/26/[address]: CARLOS EDUARDOC: ORDERED: THROAT CULTURE QUERIES: MEDENT REQUISITION # [id number] ACT WKST: B 11/28/11 #1 Procedure Result Verified Site > THROAT CULTURE FULL Final 11/28/11- 1150 ML NORMAL THROAT AUDRA FULL THROAT CULTURES ARE CLINICALLY INDICATED TO DETECT THE PRESENCE OF GROUP A STREP, ARCANOBACTERIUM AND YEAST. - [facility] Permit #[id number] [facility] [employer] [place] [id number] DEPARTMENT OF PATHOLOGY, [facility] [employer] [place], [place] [address] [facility] Permit #[id number] Lawson Fischer M.D. Director Delmy Dumont M.D. Paper Counter 43 Less Than 1.0......Low Risk of Cardiovascular Disease 1.0-3.0............Medium Risk (<2 Fold Increase) Greater Than 3.0...High Risk (Approximately 2-Fold Increase) The above guidelines are referenced in "Markers of Inflammation and Cardiovascular Disease: Application to Clinical and Public Health Practice." A Statement for Health Professionals from the Centers for Disease Control and Prevention and the [employer] Heart Association. (Reference: Circulation 2003 107:499-511) SERUM LEVELS OF HIGH SENSITIVITY C-REACTIVE PROTEIN MEASURED BY THE [employer] LXi 725 SYSTEM SHOULD NOT BE INTERPRETTED [...] has been shown to interfere with the [place] method for measuring total bilirubin. Samples from [...] change was based on recommendations from the [employer] Diabetes Association. 55 Please note change in reference range effective 08 . 56 A metabolite of Naproxen, O-desmethylnaproxen, has been shown to interfere with the [place] method for measuring total bilirubin. Samples from [...] Clumps Procedures Date Code Description Status 11/10/2018 99378734 Colonoscopy Completed 05/17/2018 53059 Colposcopy W/Biopsy Cervix/Endocervical Curettage Completed 08/26/2017 [id number] Mammogram Completed 08/19/2016 29066791 Mammogram Completed 08/19/2015 21197057 Mammogram Completed 08/15/2014 45343698 Mammogram Completed 09/12/2013 70946202 Mammogram Completed 12/15/2012 05632329 Colonoscopy Completed 08/17/2011 64833 Holter Monitor Review (24 hr)dr review & interp only Completed 08/05/2011 77080 EKG Tracing & Interpretation Completed 10/31/2010 16256 EKG Tracing & Interpretation Completed 12/28/2007 87684 EKG Tracing & Interpretation Completed 11/04/2007 12763211 Colonoscopy Completed 05/21/2006 44198 EKG Tracing & Interpretation Completed Encounters Type Date Location Provider Dx Diagnosis Office Visit 12/08/2018 [facility] Riley Parry MD R87.612 Low grade 8:30a [facility] intrepith lesion cyto smr crvx (LGSIL) Office Visit 08/30/2018 [facility] Aleshia Mckee, R05 Cough 3:40p Medicine Ambar Office Visit 04/21/2018 [facility] Riley Parry MD Z01.419 Encntr for mophead trimmer and wrapper 8:00a [facility] exam (general) (routine) w/o abn findings R10.30 Lower abdominal pain, unspecified Z87.410 Personal history of cervical dysplasia 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 general adult medical exam w/o abnormal findings Z12.4 Encounter for screening for malignant neoplasm of cervix Office Visit 12/09/2017 11:20a [facility] Internal Margi L01.00 Impetigo, Torrey Mckee M.D. unspecified Office Visit 04/16/2017 4:00p [facility] Internal Margi R35.8 Other polyuria Torrey Mckee M.D. N39.0 Urinary tract infection, site not specified N77.1 Vaginitis, vulvitis and vulvovaginitis in dis classd elswhr N76.0 Acute vaginitis Office Visit 03/30/2017 9:20a [facility] Internal Margi Z00.00 Encntr for Torrey Mckee M.D. general adult medical exam w/o abnormal findings N77.1 Vaginitis, vulvitis and vulvovaginitis in dis classd elswhr Office Visit 02/03/2017 [facility] Lillian Trevino, J20.9 Acute bronchitis , 1:00p Medicine N.P. unspecified Office Visit 01/29/2017 [facility] Internal Margi R05 Cough 10:00a Torrey Mckee M.D. Office Visit 01/11/2017 [facility] Nawaf F M25.561 Pain in right 8:00a [facility] MD Zak knee C.M.A. M71.21 Synovial cyst of popliteal space [Preciado], right knee M17.11 Unilateral primary osteoarthritis, right knee Office Visit 12/10/2016 9:00a [facility] Internal Margidebbie Mceke, R10.2 Pelvic and Medicine Ambar perineal pain R22.41 Localized swelling, mass and lump, right lower limb R53.83 Other fatigue Office Visit 05/14/2016 1:20p [facility] Internal Margi R35.0 Frequency of Medicine Ambar Mckee micturition N77.1 Vaginitis, vulvitis and vulvovaginitis in dis classd elswhr Office Visit 04/15/2016 1:20p [facility] Internal Lillian Trevino, N39.0 Urinary tract Medicine N.P. infection, site not specified R35.0 Frequency of micturition N77.1 Vaginitis, vulvitis and vulvovaginitis in dis classd elswhr N76.0 Acute vaginitis N76.2 Acute vulvitis R39.15 Urgency of urination Office Visit 04/10/2016 11:40a [facility] Internal Margi S09.8xxA Other specified Torrey Mckee M.D. injuries of head, initial encounter G44.319 Acute post-traumatic headache, not intractable Office Visit 03/26/2016 10:40a [facility] Internal Margi Z00.00 Encntr for Torrey Mckee M.D. general adult medical exam w/o abnormal findings N94.1 Dyspareunia Office Visit 01/16/2016 10:40a [facility] Internal Yoel Greenfield NP J06.9 Acute upper Medicine respiratory infection, unspecified Office Visit 01/13/2016 1:20p [facility] Internal Luisito Sweeney, J20.9 Acute bronchitis, Medicine - M.DCuco unspecified [address] Office Visit 03/21/2015 10:20a [facility] Internal Margi V70.0 Examination Torrey Mckee M.D. General Medical Routine AT Health Care Facility 789.09 Pain Abdominal Other Spec Site Office Visit 01/09/2015 2:00p [facility] Internal Yoel Greenfield NP 461.8 Sinusitis Acute Medicine Other Office Visit 12/06/2014 2:40p [facility] Internal Margi 789.00 Pain Abdominal Medicine Ambar Mckee Unspec Site 789.06 Pain Abdominal Epigastric Office Visit 03/15/2014 10:20a [facility] Internal Margi V70.0 Examination Torrey Mckee M.D. General Medical Routine AT Health Care Facility Office Visit 11/01/2013 9:40a [facility] Internal Margi 780.4 Dizziness & Torrey Mckee M.D. Giddiness Office Visit 07/18/2012 10:20a [facility] Internal Margi V70.0 Examination Torrey Mckee M.D. General Medical Routine AT Health Care Facility 493.00 Asthma Extrinsic Unspecified 621.9 Uterus Disorders Unspec V04.81 Need For Prophylactic Vaccination & Inoculation/Influenza V72.31 Routine Reading Aide Examination V76.2 Screening Malignant Neoplasm Cervix Office Visit 05/10/2012 11:40a [facility] Internal Margi 461.9 Sinusitis Acute Torrey Mckee M.D. Unspec 380.4 Impacted Cerumen Office Visit 12/14/2011 11:00a [facility] Internal Margi 784.2 Swelling In Head & Torrey Mckee M.D. Neck Office Visit 11/26/2011 11:20a [facility] Internal Margi 462 Pharyngitis Acute Medicine Ambar Mckee Office Visit 08/28/2011 1:00p DO Not Use Margi 309.9 Adjustment Ranjit Mckee M.D. Reaction Unspec Office Visit 08/05/2011 9:40a DO Not Use Sandra Marsha, 785.1 Palpitations Ranjit Villalta, FACP 780.52 Insomnia Unspecified v04.81 Need For Prophylactic Vaccination & Inoculation/Influenza Office Visit 04/20/2011 DO Not Use Lillian Trevino, 461.9 Sinusitis Acute 11:20a [facility] [facility]. Unspec Office Visit 12/12/2010 DO Not Use Margi 789.00 Pain Abdominal 1:15p Ranjit Mckee M.D. Unspec Site 493.00 Asthma Extrinsic Unspecified Office Visit 11/05/2010 DO Not Use Lillian Varn, 995.27 Other Drug 2:30p [facility] [facility] Allergy Office Visit 10/31/2010 DO Not Use Margi V70.0 Examination 9:15a Ranjit Mckee M.D. General Medical Routine AT Health Care Facility 789.00 Pain Abdominal Unspec Site 698.9 Pruritic Disorder Unspec V06.1 Bcwolxzydn-Nppspae-Jtstbuvt Combined (DTaP) 272.4 Hyperlipidemia Other Unspec Office Visit 09/30/2010 DO Not Use Sandra Marsha, 465.9 URI Upper 2:45p Ranjit Villalta, FACP Respiratory Infections Acute Unspec Sites Office Visit 08/11/2010 DO Not Use Margi 272.4 Hyperlipidemia 3:15p Ranjit Mckee M.D. Other Unspec V04.81 Need For Prophylactic Vaccination & Inoculation/Influenza Office Visit 08/16/2009 DO Not Use Radhoward, 616.10 Vaginitis & 3:30p Ranjit Villasenor M.D. Vulvovaginitis Unspec 300.00 Anxiety State Unspec Office Visit 07/12/2009 DO Not Use Lillian Trevino, 461.9 Sinusitis Acute 11:00a [facility] [facility] Unspec Office Visit 06/12/2008 DO Not Use Radhoward, 625.4 Premenstrual 1:45p Ranjit Villasenor M.D. Tension Syndromes Office Visit 04/13/2008 DO Not Use Lillian Trevino, 462 Pharyngitis Acute 3:45p [facility] N.P. Office Visit 12/28/2007 DO Not Use Radhoward, 785.1 Palpitations 11:30a Ranjit Villasenor M.D. Office Visit 10/24/2007 DO Not Use Lillian Trevino, 461.9 Sinusitis Acute 10:30a [facility] N.P. Unspec Office Visit 10/12/2007 DO Not Use Lillian Trevino, 461.9 Sinusitis Acute 10:00a [facility] N.P. Unspec Office Visit 08/30/2007 DO Not Use Farzaneh, 787.99 Digestive 1:30p Ranjit Villasenor M.D. Symptoms Other Office Visit 08/17/2007 DO Not Use Farzaneh, 466.0 Bronchitis Acute 11:30a Ranjit Villasenor M.D. Office Visit 08/12/2007 DO Not Use Sandrajarrell Larson, 786.2 Cough 10:45a Ranjit Villalta, FACP V04.81 Need For Prophylactic Vaccination & Inoculation/Influenza Office Visit 07/19/2007 DO Not Use Lillian Trevino, 681.02 Onychia & 10:00a [facility] [facility] Paronychia Finger Office Visit 10/12/2006 DO Not Use Farzanhe, 461.9 Sinusitis Acute 1:00p Ranijt Villasenor M.D. Unspec Office Visit 05/21/2006 DO Not Use Farzaneh, 786.50 Pain Chest 2:45p Ranjit Villasenor M.D. Unspec Plan of Treatment Future Appointment(s):03/10/2019 3:00 pm - Riley Parry MD at [facility]04/24/2019 11:00 am - Margi Mckee M.D. at [facility] Internal Nicjbxwo77/12/2019 - Yoel Greenfield NPJ01.90 Acute sinusitis, unspecifiedNew Medication:Amoxicillin/Clavulanate Potassium 875-125 mg - take one tablet q12 hours for 10 daysComments:I recommend that you start to use the Flonase, 2 sprays each nostril once daily.If your symptoms worsen or persist while you are away start the antibiotic.Follow up:prn
[2019-03-03 11:25] VITALS: BP 117/72
--- NOTE | 2019-03-03 12:11 | ED ---
Head Injury - HPI Summary HPI Summary: Patient is a 58-year-old female presenting to the ED approximately 30 minutes after a fall. She endorses head injury to the right front side of the head. She denies any blood thinners. Denies LOC. She is endorsing headache, denies any confusion, memory loss, visual changes. She denies any nausea or vomiting. She states she was slightly nauseous immediately following the accident, but denies any nauseousness right now. She does endorse some right sided hip pain and bilateral wrist pain, but denies any pain with flexion and extension and she is able to ambulate well. She is otherwise healthy. She states this fall was mechanical and she tripped. No history of seizures, recent trauma or alcohol abuse. - History Of Current Complaint Chief Complaint: EDHeadInjury Stated Complaint: FALL, HEAD INJURY PER PT Time Seen by Provider: 03/03/19 09:55 Hx Obtained From: Patient Mechanism Of Injury: Blunt Trauma Onset/Duration: Started Hours Ago Onset of Pain: Hours Severity Currently: Mild Severity Initially: Mild Pain Intensity: 4 Pain Scale Used: 0-10 Numeric Location: Discrete At: - right sided frontal Character: Throbbing Alleviating Factor(s): Rest Associated Signs And Symptoms: Negative - Risk Factors SDH Risk Factor: Negative - Allergies/Home Medications Allergies/Adverse Reactions: Allergies Allergy/AdvReac Type Severity Reaction Status Date / Time erythromycin base Allergy Abdominal Verified 03/03/19 09:47 Pain tetracycline Allergy Stomach Verified 03/03/19 09:47 Cramps Home Medications: Home Medications NK [No Home Medications Reported] 03/03/19 [History Confirmed 03/03/19] PMH/Surg Hx/FS Hx/Imm Hx Previously Healthy: Yes - Surgical History Surgery Procedure, Year, and Place: NONE TO HEAD - Immunization History Hx Pertussis Vaccination: No Immunizations Up to Date: Yes Infectious Disease History: No Infectious Disease History: Denies: Traveled Outside the [place] in Last 30 Days - Family History Known Family History: Positive: Hypertension - Social History Occupation: Employed Full-time Lives: With Family Alcohol Use: None Hx Substance Use: No Substance Use Type: Reports: None Hx Tobacco Use: No Smoking Status (MU): Never Smoked Tobacco Review of Systems Constitutional: Negative Negative: Fever, Chills, Fatigue, Skin Diaphoresis Negative: Palpitations, Chest Pain Negative: Shortness Of Breath, Cough Genitourinary: Negative Positive: no symptoms reported, see HPI Negative: Arthralgia, Myalgia Positive: Other - small .3cm abrasion to the R front/forehead Positive: Headache All Other Systems Reviewed And Are Negative: Yes Physical Exam Triage Information Reviewed: Yes Vital Signs On Initial Exam: Initial Vitals Temp Pulse Resp BP Pulse Ox 97 F 72 16 125/76 99 03/03/19 09:44 03/03/19 09:44 03/03/19 09:44 03/03/19 09:44 03/03/19 09:44 Vital Signs Reviewed: Yes Appearance: Positive: Well-Appearing, Well-Nourished Skin: Positive: Warm, Skin Color Reflects Adequate Perfusion, Other - small .3cm abrasion to the R front/forehead Head/Face: Positive: Cephalohematoma - small .3cm abrasion to the R front/ forehead with cephalahematoma Eyes: Positive: EOMI, GENOVEVA, Conjunctiva Clear Neck: Positive: Supple, No Lymphadenopathy Respiratory/Lung Sounds: Positive: Clear to Auscultation, Breath Sounds Present Cardiovascular: Positive: RRR, Pulses are Symmetrical in both Upper and Lower Extremities. Negative: Leg Edema Left, Leg Edema Right Musculoskeletal: Positive: Normal, Strength/ROM Intact Neurological: Positive: Sensory/Motor Intact, Alert, Oriented to Person Place, Time, CN Intact II-III, Normal Gait, Speech Normal Psychiatric: Positive: Normal, Affect/Mood Appropriate AVPU Assessment: Alert Diagnostics - Vital Signs Vital Signs Temp Pulse Resp BP Pulse Ox 03/03/19 11:24 97.0 F 60 16 117/72 98 03/03/19 11:20 60 117/72 98 03/03/19 10:23 97.3 F 03/03/19 10:00 65 29 100 03/03/19 09:56 63 22 134/76 100 03/03/19 09:54 68 100 03/03/19 09:44 97 F 72 16 125/76 99 - Laboratory Lab Statement: Any lab studies that have been ordered have been reviewed, and results considered in the medical decision making process. Head Injury Course/Dx Course Of Treatment: During the course of treatment, the patient's evaluated for a fall with a right-sided headache injury. Full neuro exam performed which is normal. EOMI/PERRLA, lungs CTA, RRR, neck supple, nontender, no LAD, lungs CTA, RRR. No pain on palpation to the bilateral hips, lower extremities, upper extremities or wrists. Flexion and extension intact to the upper and lower extremities. No cervical spine tenderness. Denies any blood thinners. CT brain obtained which shows no acute intracranial abnormalities. Discussed this with patient that due to her headache and feeling somewhat dizzy, although improved since arrival, she may have a mild concussion. She is to have brain rest right now and is encouraged not to return to work at this time. She is able to return to work in 2 days unless she begins to feel worse. She understands these return precautions. Small abrasion to the right side of the forehead is treated with adhesive. She is ambulating well upon discharge, vital signs are stable. Discussed strict return precautions, follow up with PCP in 2 days and bring rest with patient. She understands if she develops a worsening headache, nausea, vomiting or any other new symptoms, she is to return to the ED immediately. She is diagnosed with head injury. - Diagnoses Differential Diagnosis/HQI/PQRI: Contusion, Other - concussion Provider Diagnoses: Head injury Discharge - Sign-Out/Discharge Documenting (check all that apply): Patient Departure Patient Received Moderate/Deep Sedation with Procedure: No - Discharge Plan Condition: Stable Disposition: HOME Patient Education Materials: Head Injury (ED), Skin Adhesive Care (ED) Referrals: Margi Mckee MD [Primary Care Provider] - Additional Instructions: do not wash off the adhesive x 1-2 days Do not scrub the area If you develop any headaches not well controlled with tylenol or ibuprofen - return to the ED - Billing Disposition and Condition Condition: STABLE Disposition: Home
== END 2019-03-03 11:24 | disposition home or self-care (01) ==
LOC: ED 09:41
DX: S09.90XA Unspecified injury of head, initial encounter (principal); W19.XXXA Unspecified fall, initial encounter; Z88.3 Allergy status to other anti-infective agents; Z88.8 Allergy status to other drugs, medicaments and biological substances
CPT/HCPCS: 70450; 99282; A9270-GY

== ENCOUNTER 2020-01-03 05:36 | Day surgery (SDC) | payer BC, OTHER ==
[~2020-01-03 05:36] MED LIST: Buffered Lidocaine 1% SYRIN* 1 ML/SYRINGE INTRADERM ONE
[2020-01-03] MEDS ORDERED: Lactated Ringers 1000 ML Bag* 1,000 ML IV SCH (06:00)
[2020-01-03] MEDS ORDERED: Iodine Strong (LUGOL'S)* 14 ML BTL ONE (07:15)
[2020-01-03] MEDS ORDERED: VASOPRESSIN 20 UNITS/ML 1 ML VIAL ONE (07:15)
[2020-01-03] MEDS ORDERED: Acetic Acid 0.25%* 250 ML BTL ONE (07:20)
[2020-01-03] MEDS ORDERED: Propofol* 10 MG/ML 20 ML BTL ONE ×3 (07:28→08:07)
[2020-01-03] MEDS ORDERED: Lidocaine 2% PF * 5 ML VIAL ONE (07:28)
[2020-01-03] MEDS ORDERED: Midazolam* 1 MG/ML 2 ML VIAL (2 MG) ONE ×2 (07:29→07:56)
[2020-01-03] MEDS ORDERED: Lidocaine 1% INJ* 10 MG/ML 30 ML SDV ONE (07:30)
[2020-01-03] MEDS ORDERED: Ferric Subsulfate* 1 dose = 10 mL Solution TOPICAL ONE (08:00)
[2020-01-03] MEDS ORDERED: oxyCODONE TAB* 5 MG TAB PO PRN (08:13)
[2020-01-03] MEDS ORDERED: Ondansetron INJ* 2 MG/ML VIAL IV PRN (08:13)
[2020-01-03] MEDS ORDERED: Acetaminophen TAB* 325 MG PO PRN (08:13)
[2020-01-03] MEDS ORDERED: Naloxone* 0.4 MG/ML 1 ML VIAL IV PRN (08:13)
[2020-01-03] MEDS ORDERED: Ibuprofen TAB* 600 MG ONE (09:15)
[2020-01-03 10:48] VITALS: BP 112/70
--- NOTE | 2020-01-03 22:47 | OP ---
DATE OF OPERATION: 01/03/20 - [facility] DATE OF : 60 SURGEON: Riley Parry MD ANESTHESIOLOGIST: Dr. Nagel. ANESTHESIA: MAC anesthesia with local. PRE-OP DIAGNOSIS: Persistent low-grade cervical dysplasia. POST-OP DIAGNOSIS: Persistent low-grade cervical dysplasia. OPERATIVE PROCEDURE: Colposcopy, Turner cone biopsy, endocervical curettage. FINDINGS: Midline small cervix, small acetowhite change at 3 o'clock. No abnormal vessels. COMPLICATIONS: None. COUNTS: Sponge count correct x2. CONDITION: The patient tolerated the procedure well and was brought to the recovery room in stable condition. SPECIMENS: 1. Turner cone biopsy size small with a cut at 12 o'clock. 2. Endocervical curettage after the cone biopsy with kevorkian curette and endocervical brush 3. Endocervical curettage with blue collection wand after above ECC DESCRIPTION OF PROCEDURE: The patient was brought to the operating room. When MAC anesthesia was found to be adequate, the patient was draped in the usual sterile fashion. No prep was used because the patient was going to have a colposcopy. A time-out was performed. Colposcopy was then performed using the Lletz coated speculum. The entire cervix was visualized. Vinegar was applied. Very small area of acetowhite change was seen at 3 o'clock. No other abnormalities were seen. No abnormal vessels were seen. The cervix is small, midline and atrophic in appearance. The Turner cone size small was used. The specimen was removed in one piece with a cut at 12 o'clock. Endocervical curettage was then performed using the kevorkian and endocervical brush. Another ECC was then performed with blue collectio wand and that was sent separately to Pathology. Excellent hemostasis was achieved using Monsel solution. There was no active bleeding. All instruments were removed from the vagina and the patient was brought to the recovery room awake and in stable condition. [id number]/[facility] #: [id number] [facility]
== END 2020-01-03 10:45 | disposition home or self-care (01) ==
LOC: OR 05:36
PROVIDERS: ATTEND Obstetrics & Gynecology
DX: R87.612 Low grade squamous intraepithelial lesion on cytologic smear of cervix (LGSIL) (principal); R87.810 Cervical high risk human papillomavirus (HPV) DNA test positive; E78.5 Hyperlipidemia, unspecified; J45.909 Unspecified asthma, uncomplicated; Z79.51 Long term (current) use of inhaled steroids; Z87.891 Personal history of nicotine dependence; Z88.1 Allergy status to other antibiotic agents
CPT/HCPCS: 88305; 88307; A9270-GY; J2250; J2704